=== PATIENT | male | born 1945 | race Hispanic/Latino ===

== ENCOUNTER 2017-09-24 06:18 | Inpatient (IN) | payer MEDICARE, OTHER ==
[2017-09-24 07:03] VITALS: BMI 36.3
[2017-09-24] MEDS ORDERED: Midazolam 2 MG/2 ML VIAL ONE (07:28)
[2017-09-24] MEDS ORDERED: Succinylcholine 200 mg/10 ml Inj IV ONE (07:28)
[2017-09-24] MEDS ORDERED: Etomidate 20 mg/10ml Inj IV ONE (07:28)
[2017-09-24] MEDS ORDERED: Rocuronium 10 mg/ml (5 ml) ONE (07:28)
[2017-09-24] MEDS ORDERED: ePHEDrine 50 mg/ml Inj ONE (07:29)
[2017-09-24] MEDS ORDERED: Phenylephrine 10 mg/ml Inj ONE (07:30)
[2017-09-24] MEDS ORDERED: Iohexol 240 (50 ml) ONE (07:39)
[2017-09-24] MEDS ORDERED: Bupivacaine 0.5% Inj(30mL) ONE (07:39)
--- NOTE | 2017-09-24 08:33 | CP.PCM.CON ---
History of Present Illness - History of Present Illness History of Present Illness: General Surgery note for Dr. Ramires Patient is a 72M with PMH of CAD, OR, CABG, aortic stenosis, and tricuspid regurgitation on aspirin at home with chronic cholecystitis and cholelithiasis who presented for an outpatient laparoscopic cholecystectomy. Pt had been given and high-risk assessment by his pole inspector, Dr. Ram prior to surgery with EKG on 09/03 with normal sinus rhythm. Pt was transferred to the OR and on the OR table after fentanyl administration was noted to have an irregular rhythm on the manager cardiac. EKG was performed and showed atrial fibrillation, which is new onset for this patient. Patient was otherwise hemodynamically stable and was transferred to the PACU. Dr. Barillas was contacted and will come evaluate the patient PMH: CAD, OR, aortic stenosis, and tricuspid regurgitation, HTN, HLD PSH: CABG, appendectomy ALL: NKDA Review of Systems - Constitutional Constitutional: absent: Chills, Fever - Cardiovascular Cardiovascular: Dyspnea on Exertion. absent: Chest Pain, Chest Pain at Rest, Edema - Respiratory Respiratory: Dyspnea on Exertion. absent: Cough, Dyspnea - Gastrointestinal Gastrointestinal: absent: Abdominal Pain, Nausea, Vomiting - Musculoskeletal Musculoskeletal: absent: Numbness, Tingling - Neurological Neurological: absent: Abnormal Gait, Numbness, Weakness Past Patient History - Past Medical History & Family History Past Medical History?: Yes Past Family History: Reviewed and not pertinent - Past Social History Smoking Status: Never Smoked - CARDIAC Hx Cardiac Disorders: Yes Hx Heart Attack: Yes Hx Hypercholesterolemia: Yes Hx Hypertension: Yes Hx Pacemaker: No Other/Comment: aortic stenosis, tricuspid regurgitation, CABG - NEUROLOGICAL Hx Paralysis: No - ENDOCRINE/METABOLIC Hx Endocrine Disorders: Yes Hx Diabetes Mellitus Type 2: Yes - HEMATOLOGICAL/ONCOLOGICAL Hx Blood Transfusions: No Hx Blood Transfusion Reaction: No - MUSCULOSKELETAL/RHEUMATOLOGICAL Hx Musculoskeletal Disorders: No - GASTROINTESTINAL Hx Gall Bladder Disease: Yes - PSYCHIATRIC Hx Emotional Abuse: No Hx Physical Abuse: No Hx Substance Use: No - SURGICAL HISTORY Hx Surgeries: Yes Hx Appendectomy: Yes Hx Coronary Artery Bypass Graft: Yes - ANESTHESIA Hx Anesthesia Reactions: No Hx Malignant Hyperthermia: No Meds Allergies/Adverse Reactions: Allergies Allergy/AdvReac Type Severity Reaction Status Date / Time No Known Allergies Allergy Verified 03/18/16 12:09 Physical Exam - Constitutional Appears: Well, Non-toxic, No Acute Distress - Head Exam Head Exam: ATRAUMATIC, NORMOCEPHALIC - Eye Exam Eye Exam: Normal appearance. absent: Conjunctival injection, Scleral icterus - ENT Exam ENT Exam: Mucous Membranes Moist, Normal Oropharynx - Respiratory Exam Respiratory Exam: NORMAL BREATHING PATTERN. absent: Accessory Muscle Use, Respiratory Distress - Cardiovascular Exam Cardiovascular Exam: Irregular Rhythm - GI/Abdominal Exam GI & Abdominal Exam: Soft. absent: Distended, Tenderness - Extremities Exam Extremities exam: Positive for: pedal pulses present. Negative for: calf tenderness, pedal edema - Neurological Exam Neurological exam: Alert, Oriented x3 - Psychiatric Exam Psychiatric exam: Normal Affect, Normal Mood - Skin Skin Exam: Dry, Intact, Warm Results - Vital Signs Recent Vital Signs: Last Vital Signs Temp 98.2 F 09/24/17 06:58 Pulse 56 L 09/24/17 06:58 Resp 18 09/24/17 06:58 BP 125/72 09/24/17 06:58 Pulse Ox 98 09/24/17 06:58 - Labs Labs: Laboratory Results - last 24 hr 09/24/17 09/24/17 06:47 07:40 POC Glucose (mg/dL) 119 H BBK History Checked No verified bt Assessment & Plan - Assessment and Plan (Free Text) Assessment: 72M with extensive cardiac history and cholelithiasis with new on set AFIB Plan: Postpone laparoscopic cholecystectomy pending cardiad evaluation/treatment of Afib Dr. Barillas/Yo consulted and will evaluate the patient Follow up cardiac recs heart healthy diet Seen and discussed with Dr. Keyla Moya, PGY2
[2017-09-24] MEDS: Heparin25000 units/250ml 1/2NS 25,000 UNITS/250 ML BAG IV PRN (11:29)
[2017-09-24] MEDS: Potassium Chloride 20 mEq ER Tab PO SCH (17:28)
[2017-09-24] MEDS: Insulin Human NPH 1 UNITS/0.01 ML SC SCH (17:29)
[2017-09-24] MEDS: Magnesium Oxide 400 mg Tab UD PO SCH (17:30)
[2017-09-24 17:37] LABS: BASO # 0.02 K/mm3 (0.0-2.0); BASO % 0.2 % (0.0-3.0); EOS # 0.1 (0.0-0.7); EOS % 1.5 % (1.5-5.0); GRAN # 5.45 (1.4-6.5); GRAN % 62.9 % (50.0-68.0); HEMOGLOBIN 12.1 g/dL (14.0-18.0); LYMPH # 2.5 (1.2-3.4); LYMPH % 29.1 % (22.0-35.0); MEAN CELL VOLUME 87.4 fl (80.0-105.0); MEAN CORPUSCULAR HEMOGLOBIN 28.9 pg (25.0-35.0); MEAN CORPUSCULAR HGB CONC 33.1 g/dl (31.0-37.0); MEAN PLATELET VOLUME 9.7 fl (7.0-11.0); MONO # 0.6 (0.1-0.6); MONO % 6.3 % (1.0-6.0); RBC 4.19 10^6/uL (3.5-6.1); RED CELL DISTRIBUTION WIDTH 14.8 % (11.5-14.5); WHITE BLOOD COUNT 8.7 10^3/ul (4.5-11.0)
[2017-09-24 17:45] LABS: ALB/GLOB RATIO 1.3 (1.1-1.8); ALBUMIN 4.4 g/dL (3.0-4.8); ALT/SGPT 28 U/L (7-56); AST/SGOT 27 U/L (17-59); BILIRUBIN,DIRECT 0.4 mg/dL (0.0-0.4); BLOOD UREA NITROGEN 36 mg/dL (7-21); CALCIUM 10.7 mg/dL (8.4-10.5); GFR AFRICAN-AMERICAN > 60; GFR NON-AFRICAN AMERICAN 59; HDL CHOLESTEROL 51 mg/dL (29-60); URIC ACID 8.5 mg/dL (3.5-8.5)
[2017-09-24 17:56] LABS: LDL CHOLESTEROL 59 mg/dL (0-129)
[2017-09-24] MEDS ORDERED: Magnesium Oxide 400 mg Tab UD PO SCH (18:00)
[2017-09-24 18:46] LABS: FREE T4 1.51 ng/dL (0.78-2.19); T4 7.4 ug/dL (5.5-11.0)
--- NOTE | 2017-09-24 18:46 | CARD ---
APPROVED REPORT EKG Measurement Heart [id number] <Conclusion> Atrial fibrillation with slow ventricular response Left axis deviation Right bundle branch block Inferior infarct, age undetermined Abnormal ECG
--- NOTE | 2017-09-24 21:23 | CON ---
DATE: 09/24/2017 INDICATION: Atrial fibrillation. HISTORY OF PRESENT ILLNESS: This is a 72-year-old man, well known to me, came to the hospital for an elective lap cholecystectomy by Dr. Ramires, was found to be in atrial fibrillation, which was new, rate was relatively slow, the procedure was canceled. He is now in the recovery area. He is in atrial fibrillation with the rate of about 80 beats per minute. He has no chest pain or shortness of breath. He does note continued intermittent abdominal pain attributable to his symptomatic gallstones. There is no orthopnea, PND, syncope, presyncope, lightheadedness or dizziness. No palpitations. He does have chronic edema. There is no fever, chills, cough, sputum production, hemoptysis. There is no nausea, vomiting, diarrhea, constipation or melena. PAST MEDICAL HISTORY: Complex. He has severe aortic stenosis and is considered high risk with surgery. He elected surgery in consultation with his sisters and other physicians because of his continuing symptomatic gallstones. In addition to aorticstenosis, he has mild mitral regurgitation, moderate tricuspid regurgitation, moderate pulmonary hypertension on the echo. He is diabetic. He has coronary artery disease, remote myocardial infarction, remote coronary artery bypass surgery. He has peripheral vascular disease, gout, BPH, hyperlipidemia, appendectomy. He is mentally challenged. There is no history of stroke, TIA. MEDICATIONS: Include allopurinol, aspirin, finasteride, furosemide, gemfibrozil, glimepiride, insulin, Lipitor, magnesium oxide, metformin, metoprolol, omeprazole, potassium chloride, vitamin B12, Zovirax. ALLERGIES: NO MEDICATION ALLERGIES. SOCIAL HISTORY: He lives at home. He does not smoke cigarettes. He does not drink alcohol. He is assisted by his sisters. FAMILY HISTORY: Noncontributory. REVIEW OF SYSTEMS: A 10-point review of systems was otherwise unremarkable except as noted above. PHYSICAL EXAMINATION: GENERAL: He is a well-developed male lying on stretcher in the recovery area, in no acute distress. VITAL SIGNS: He is in atrial fibrillation, 65-80 beats per minute, 117/76, respirations 18, O2 sat 96% to 98% on room air. HEENT: Reveals no neck vein distention, thyromegaly or carotid bruits. Mucous membranes are moist. Conjunctivae are pink. NECK: Supple. LUNGS: Lung harris clear with scattered rhonchi. HEART: Reveals distant heart sounds. Irregular rhythm. Systolic ejection murmur in the aortic space and along the left sternal border. PMI not palpable. ABDOMEN: Mildly tender in the right upper quadrant. Bowel sounds present. No mass, organomegaly, tenderness, rebound, guarding. No CVA tenderness. EXTREMITIES: No cyanosis, clubbing or edema. NEUROLOGIC: Awake, alert and oriented. PSYCHIATRIC: Normal as to mood and affect. SKIN: Warm and dry. No rash or cellulitis. IMPRESSION: Moody You is a 72-year-old man with severe aortic stenosis, coronary artery bypass surgery, left ventricular dysfunction, was admitted for elective laparoscopic cholecystectomy and found to have atrial fibrillation, the surgery has been canceled. PLAN: He will be admitted to telemetry. I will start him on heparin. I will review his old records. I will continue his usual medications. A decision will be made whether or not to proceed with surgery, which he is very eager to have. I have discussed all these issues again with the patient in the presence of his two sisters in the PACU. I have discussed his case with Dr. Ramires pre-operatively indicating the level of cardiac risk. I will follow along with you. I will make additional recommendations based on his clinical course. If he elects surgery, he should be considered a very high cardiac risk. yRan Ram MD [facility]
[2017-09-24 22:06] LABS: FOLATE > 20.0 ng/mL
--- NOTE | 2017-09-25 01:20 | HP ---
HISTORY OF PRESENT ILLNESS: Patient is a 72-year-old obese male who was admitted through the same-day surgery. Patient was scheduled for elective cholecystectomy today, but patient when arrived to the preoperative area. Patient's EKG showed atrial fibrillation, which was new onset and patient's surgery was canceled by the anesthesia and the surgeon. Patient was seen in the recovery room lying in the stretcher. Patient is comfortable without any complaints. REVIEW OF SYSTEMS: Patient's 13-system review was done, pertinent positive and negative dictated above. CODE STATUS: Patient's code status is full code. LIVING WILL ADVANCE DIRECTIVE: None. ALLERGIES: NONE. Height is 5 feet 4 inches. Weight is 193. BMI is 33. OCCUPATIONAL HISTORY: Not employed. FAMILY HISTORY: Positive for diabetes, hypertension. HOME MEDICATIONS: Aspirin 81 mg daily, allopurinol 300 mg daily, acyclovir 200 mg daily, which was not prescribed by ca, Amaryl or glimepiride 2 mg of twice a day, gemfibrozil 600 mg twice a day, Lasix 40 mg b.i.d. or t.i.d., Proscar 5 mg daily, vitamin B12 1000 mcg monthly, Lipitor 40 mg daily, K-Dur 20 mEq twice a day, Prilosec 40 mg p.r.n., Lopressor 50 mg twice a day, metformin 1000 mg twice a day, magnesium oxide 800 mg twice a day, NPH insulin 25 units breakfast and dinner. SOCIAL HISTORY: Negative for substance abuse. Negative for alcohol. Negative for smoking. PAST MEDICAL AND SURGICAL HISTORY: History of cholelithiasis, history of morbid obesity, history of dietary noncompliance, history of hyperuricemia, history of hypertension, history of myocardial infarction, history of coronary artery disease, coronary artery bypass graft, history of insulin-requiring diabetes mellitus, history of hypertriglyceridemia, history of congestive heart failure, history of severe aortic stenosis, history of moderate tricuspid regurgitation, history of ischemic cardiomyopathy with decreased ejection fraction, history of pulmonary arterial hypertension, history of vitamin B12 deficiency, history of prostatic hypertrophy, history of hyperlipidemia, history of hypokalemia, hypomagnesemia, history of bilateral renal cyst, history of diverticulosis of the colon, history of degenerative joint disease of the lumbar spine and thoracic spine, history of colonoscopy done in 2016 showing sigmoid colon tubulovillous adenoma, history of hyperplastic cecal polyp, history of concentric left ventricular hypertrophy, history of severely calcified aortic valve with severe aortic stenosis, history of moderate mitral annular calcification, history of pulmonary hypertension with right ventricular systolic pressure of 42 mmHg on the last echocardiogram in 09/2016, history of sigmoid colon polyp, history of internal hemorrhoids, history of right bundle-branch block, history of left axis deviation, history of age indeterminate inferior infarct. Patient's past medical history is also significant for history of diabetic ketoacidosis, history of left ventricular ejection fraction of 35%, history of multivessel coronary artery disease, history of cardiogenic shock, pulmonary edema. PHYSICAL EXAMINATION: GENERAL: Patient was seen in the recovery room. Patient is seen lying in the bed. VITAL SIGNS: T-max 98.2. Telemetry shows atrial fibrillation. Heart rate in 50s and 60s and 74. Blood pressure 135/63, 117/76, respiration 18, O2 sat 96%. HEENT: Head: Normocephalic, atraumatic. HEENT examination shows pinkish conjunctivae. Anicteric sclerae. No oropharyngeal lesion. NECK: No neck rigidity. CHEST: Kyphosis. Positive median sternotomy surgical scar. LUNGS: No rales, crackles or wheezing. CARDIOVASCULAR: S1, S2, irregular rhythm. Positive systolic murmur, left sternal border, right second intercostal space, left second intercostal space. ABDOMEN: Protuberant, obese. Positive bowel sounds. GENITALIA: Male. RECTAL: Deferred. EXTREMITIES: Shows no pitting edema, no calf tenderness, no Homans' sign. NEUROLOGIC: Patient is alert, awake, responsive. MUSCULOSKELETAL: Shows body mass index of 33. VASCULAR: Palpable pulses. Gait examination not tested. PSYCHIATRIC: Not applicable. DIAGNOSTICS: Troponin is 0.01. Random glucose is 119. The patient's preadmission testing was reviewed, which was from 09/03, which shows potassium of 3.4. Repeat preadmission testing is pending. Patient's EKG which was done today in the recovery room shows atrial fibrillation with slow ventricle response, left axis deviation, right bundle-branch block, which is new. Patient's diagnostic data pending. IMPRESSION: 1. New-onset atrial fibrillation with controlled ventricular response. 2. Right bundle-branch block. 3. Age indeterminate inferior infarct. 4. Left axis deviation. 5. History of coronary artery disease, coronary artery bypass graft, history of ischemic dilated cardiomyopathy. 6. Severe aortic stenosis and tricuspid regurgitation. 7. Cholelithiasis, cholecystitis. 8. Morbid obesity. 9. Normocytic anemia. 10. History of hypokalemia, hypomagnesemia. 11. Insulin-requiring diabetes mellitus. 12. Hypertriglyceridemia. 13. Hyperlipidemia. 14. Hyperuricemia. 15. History of congestive heart failure. PLAN: At this time, patient is to be admitted to telemetry. Cardiology consultation has already been requested with Dr. Barillas. Patient's change in the rhythm and new onset atrial fibrillation discussed by Dr. Ramires with Dr. Barillas. Patient has been ordered stat labs, CMP, LFTs, lipid panel, magnesium, troponin, hemoglobin A1c. CBC has been ordered. Patient's case is referred for visual educator, SIM escobar. Aspirin 81 mg daily, heparin drip as ordered by the Senior Advocate. Humalog low-dose sliding scale coverage ordered. NPH 25 units with breakfast and dinner ordered. K-Dur 20 mEq twice a day, Lasix 80 mg p.o. daily ordered by Cardiology. Lipitor 40 mg daily, Lopid 600 mg twice a day, Lopressor 50 mg twice a day, magnesium oxide 800 mg twice a day, Proscar 5 mg daily, allopurinol 300 mg daily ordered. Oxygen 2 liters ordered. Repeat EKG ordered. Echo with Doppler ordered. Heart-healthy diet ordered. Out of bed, JOSH stockings, SCDs, occupational therapy, physical therapy ordered. I have met with the patient's sister in the waiting area. I have explained to the patient's sister about the patient's change in the medical status and patient's family is already aware that patient is high risk for surgical intervention, but due to new-onset atrial fibrillation, patient's surgery has been canceled by the surgeon. All of the above was discussed and explained. Patient's condition, diagnosis , all details discussed with the patient and patient's two sisters in the waiting area at length. All questions and concerns answered. Patient's further management will be dependent upon the patient's clinical condition, hemodynamic status, as per the patient response to therapeutic intervention, as per the patient's diagnostic data and as per further recommendation by Cardiology. Dictated and electronically signed, not read. Brandyn MD [facility] # [id number]
[2017-09-25 09:55] LABS: BASO # 0.03 K/mm3 (0.0-2.0); BASO % 0.4 % (0.0-3.0); EOS # 0.1 (0.0-0.7); EOS % 1.6 % (1.5-5.0); GRAN # 5.79 (1.4-6.5); GRAN % 67.9 % (50.0-68.0); HEMOGLOBIN 12.3 g/dL (14.0-18.0); LYMPH # 1.9 (1.2-3.4); LYMPH % 21.7 % (22.0-35.0); MEAN CELL VOLUME 87.1 fl (80.0-105.0); MEAN CORPUSCULAR HEMOGLOBIN 28.9 pg (25.0-35.0); MEAN CORPUSCULAR HGB CONC 33.2 g/dl (31.0-37.0); MEAN PLATELET VOLUME 9.3 fl (7.0-11.0); MONO # 0.7 (0.1-0.6); MONO % 8.4 % (1.0-6.0); RBC 4.26 10^6/uL (3.5-6.1); RED CELL DISTRIBUTION WIDTH 14.6 % (11.5-14.5); WHITE BLOOD COUNT 8.5 10^3/ul (4.5-11.0)
[2017-09-25 10:14] LABS: TROPONIN I 0.02 ng/mL
[2017-09-25 10:33] LABS: BLOOD UREA NITROGEN 33 mg/dL (7-21); CALCIUM 10.6 mg/dL (8.4-10.5); GFR AFRICAN-AMERICAN > 60; GFR NON-AFRICAN AMERICAN > 60
[2017-09-25] MEDS: Heparin25000 units/250ml 1/2NS 25,000 UNITS/250 ML BAG IV PRN (10:41)
[2017-09-25] MEDS: Potassium Chloride 20 mEq ER Tab PO SCH ×2 (10:49→18:41)
[2017-09-25] MEDS: Magnesium Oxide 400 mg Tab UD PO SCH ×2 (10:49→18:41)
[2017-09-25] MEDS: Insulin Lispro (humaLOG) LOW Coverage SC SCH ×3 (10:50→21:32)
[2017-09-25] MEDS: Insulin Human NPH 1 UNITS/0.01 ML SC SCH ×2 (10:50→18:42)
--- NOTE | 2017-09-25 11:35 | PN ---
DATE: 09/25/2017 SUBJECTIVE: The patient is seen sitting in bed on telemetry. He remains in atrial fibrillation now with a controlled rate. He is comfortable. He denies any abdominal pain at present. He is unaware of any palpitations. CURRENT MEDICATIONS: Include IV heparin, aspirin, insulin, Lasix 80 mg daily, potassium 20 mEq b.i.d., Lipitor 40 mg daily, Lopid 600 mg b.i.d., metoprolol 50 mg b.i.d., Proscar 5 mg daily and Zyloprim. OBJECTIVE: GENERAL: He is an elderly man, who appears comfortable at the present time. VITAL SIGNS: His blood pressure is 116/70 with a pulse of 66 and atrial fibrillation, respirations are 14. He is afebrile. HEENT: No JVD. CHEST: A few scattered rhonchi heard. HEART: PMI displaced laterally with a late peaking systolic murmur present at the base radiating to the carotid. Rhythm is irregularly irregular. ABDOMEN: Soft and nontender. Normoactive bowel sounds. EXTREMITIES: No edema. DIAGNOSTIC DATA: Potassium 4.1, BUN and creatinine 33 and 1, glucose is 327. White count 8.5, hemoglobin and hematocrit 12.3 and 37.1 with a platelet count of 177,000. PTT is 58. IMPRESSION: 1. Recent onset of atrial fibrillation, currently with a controlled rate. 2. Coronary artery disease, status post prior bypass surgery. 3. Severe aortic stenosis. 4. Significant left ventricular dysfunction. 5. Cholelithiasis. 6. Mentally challenged. RECOMMENDATIONS: IV heparin will be continued for now. His rate control appears adequate at the present time. Risks remain significant given the presence of severe aortic stenosis, but apparently he and his family are willing to undergo surgery with this risk. The presence of atrial fibrillation does not change his risk profile significantly. IV heparin should continue for now. If he is to undergo surgery, heparin can be discontinued to the perioperative phase and resumed once felt safe. Long-term anticoagulation will likely be necessary as long as bleeding risk is not excessive. We will continue to follow and make further recommendations as appropriate. Ben Barillas MD [facility] # [id number]
--- NOTE | 2017-09-25 14:14 | CP.PCM.PN ---
Subjective - Date & Time of Evaluation Date of Evaluation: 09/25/17 Time of Evaluation: 09:55 - Subjective Subjective: Surgery Progress note. Dr. Ramires Pt seen and examined at bedside. Sitting up in chair. Denies any complaints. Tolerating diet, no N/V/D. Denies any chest pain or SOB. No New complaints. Objective - Vital Signs/Intake and Output Vital Signs (last 24 hours): Temp Pulse Resp BP Pulse Ox 97.5 F L 91 H 17 141/86 97 09/25/17 12:00 09/25/17 12:00 09/25/17 12:00 09/25/17 12:00 09/25/17 05:17 Intake and Output: 09/25/17 09/25/17 06:59 18:59 Intake Total 605 65 Output Total 650 Balance -45 65 - Medications Medications: Current Medications Allopurinol (Zyloprim) 300 mg PO DAILY [facility] Last Admin: 09/25/17 10:49 Dose: 300 mg Aspirin (Ecotrin) 81 mg PO DAILY [facility] Last Admin: 09/25/17 10:49 Dose: 81 mg Atorvastatin Calcium (Lipitor) 40 mg PO DIN [facility] Last Admin: 09/24/17 17:29 Dose: 40 mg Docusate Sodium (Colace) 100 mg PO TID [facility] Finasteride (Proscar) 5 mg PO HS [facility] Last Admin: 09/24/17 22:04 Dose: 5 mg Furosemide (Lasix) 80 mg PO DAILY [facility] Last Admin: 09/25/17 10:49 Dose: 80 mg Gemfibrozil (Lopid) 600 mg PO BID [facility] Last Admin: 09/25/17 10:49 Dose: 600 mg Heparin Sodium/Sodium Chloride (Heparin 84012 Units/250ml 1/2 Normal Saline) 25 ,000 units in 250 mls @ 15.758 mls/hr IV .[id number] PRN; Protocol; 18 UNITS/KG/HR PRN Reason: ADJUST RATE PER PROTOCOL Last Admin: 09/25/17 10:41 Dose: 12 units/kg/hr, 10.505 mls/hr Insulin Human Lispro (Humalog Low) 0 units SC AC [facility] PRN Reason: Protocol Last Admin: 09/25/17 10:50 Dose: 4 units Insulin Human NPH (Humulin N) 25 units SC [facility] Last Admin: 09/25/17 10:50 Dose: 25 units Magnesium Oxide (Mag-Ox) 800 mg PO BID [facility] Last Admin: 09/25/17 10:49 Dose: 800 mg Metoprolol Tartrate (Lopressor) 50 mg PO BID [facility] Last Admin: 09/25/17 10:50 Dose: 50 mg Polyethylene Glycol (Miralax) 17 gm PO BID [facility] Potassium Chloride (K-Dur 20 Meq Er Tab) 20 meq PO BID [facility] Last Admin: 09/25/17 10:49 Dose: 20 meq - Labs Labs: 09/25/17 09:45 09/25/17 09:45 APTT 57.8 Seconds (25.1-36.5) H 09/25/17 09:45 - Constitutional Appears: Well, Non-toxic, No Acute Distress - Head Exam Head Exam: ATRAUMATIC, NORMAL INSPECTION, NORMOCEPHALIC - Eye Exam Eye Exam: EOMI. absent: Scleral icterus - ENT Exam ENT Exam: Mucous Membranes Moist - Cardiovascular Exam Cardiovascular Exam: absent: JVD - GI/Abdominal Exam GI & Abdominal Exam: Soft. absent: Distended, Firm, Guarding, Rigid, Tenderness - Extremities Exam Extremities Exam: Normal Inspection. absent: Calf Tenderness - Neurological Exam Neurological Exam: Alert, Awake, Oriented x3 - Skin Skin Exam: Dry, Intact, Normal Color, Warm Assessment and Plan - Assessment and Plan (Free Text) Assessment: 72yo M with extensive cardiac history and cholelithiasis. Surgery postponed due to new-onset A.Fib. Plan: - Continue Heparin ggt for AC for now - Will plan for OR Saturday AM. - f/u Cardiac recs - Heart Healthy Diet Further recs as per Dr. Keyla Harmon PGY1 surgery pager: [phone]
[2017-09-25] MEDS: POLYETHYLENE GLYCOL 3350 17 GM/Dose PACKET PO SCH ×2 (14:35→18:43)
--- NOTE | 2017-09-25 18:03 | CARD ---
APPROVED REPORT EXAM: Two-dimensional and M-mode echocardiogram with Doppler and color Doppler. INDICATION CAD/CABG 2D DIMENSIONS Left Atrium (2D)4.9 (1.6-4.0cm)IVSd1.2 (0.7-1.1cm) LVDd5.0 (3.9-5.9cm)LVOT Diameter1.8 (1.8-2.4cm) PWd1.1 (0.7-1.1cm) M-Mode DIMENSIONS Aortic Root3.30 (2.2-3.7cm)Aortic Cusp Exc.0.50 (1.5-2.0cm) Aortic Valve AoV Peak Mnxmokwi221.0cm/sAoV VTI87.4cmAO Peak GR.60mmHg LVOT Peak Ejoatuvr57.7cm/sLVOT VTI15.00cmAO Mean GR.35mmHg CHENG (VMAX)0.05ex5VTO (VTI)0.44cm2 Mitral Valve MV E Rjgxojqj751.0cm/sMV A Qevcfwcn48.0cm/sMV ANJ84jj E/A ratio2.9MVA (PHT)2.65cm2 TDI Lateral E' Peak V7.60cm/sE/Lateral E'15.4E/Medial E'0.0 Pulmonary Valve PV Peak Txysvuto63.2cm/sPV Peak Grad.1mmHg Tricuspid Valve TR Peak Iuzhlaax683or/sRAP SHJVNIHI05vgCzUX Peak Gr.65mmHg [id number] LEFT VENTRICLE The left ventricle is normal size. There is normal left ventricular wall thickness. Left ventricle systolic function is severely impaired. The Ejection Fraction is 20-25%. There is global hypokinesis of the left ventricle. Transmitral Doppler flow pattern is Grade II-pseudonormal filling dynamics. RIGHT VENTRICLE The right ventricle is moderately dilated. There is normal right ventricular wall thickness. RV Systolic function is severely reduced. ATRIA The left atrium is mildly dilated. The right atrium is mildly dilated. AORTIC VALVE The aortic valve is severely calcified. No aortic regurgitation is present. There is moderate to severe valvular aortic stenosis. MITRAL VALVE The mitral valve is moderately thickened. Mitral regurgitation is mild. TRICUSPID VALVE There is severe tricuspid regurgitation. There is severe pulmonary hypertension. GREAT VESSELS The aortic root is normal in size. The IVC collapses <50% with inspiration. PERICARDIAL EFFUSION There is no pericardial effusion. <Conclusion> The left ventricle is normal size. There is normal left ventricular wall thickness. Left ventricle systolic function is severely impaired. The Ejection Fraction is 20-25%. There is global hypokinesis of the left ventricle. The right ventricle is moderately dilated.RV Systolic function is severely reduced. The aortic valve is severely calcified.There is moderate to severe valvular aortic stenosis. Mitral regurgitation is mild. There is severe tricuspid regurgitation.There is severe pulmonary hypertension.
--- NOTE | 2017-09-25 19:18 | CARD ---
APPROVED REPORT EKG Measurement Heart [id number] <Conclusion> Atrial fibrillation with premature ventricular or aberrantly conducted complexes Left axis deviation Right bundle branch block Inferior infarct, age undetermined Abnormal ECG
[2017-09-25] MEDS ORDERED: Magnesium Hydroxide Susp 30 ml UD PO ONE (22:03)
--- NOTE | 2017-09-26 03:26 | PN ---
DATE: 09/25/2017 SUBJECTIVE: Patient is seen in room 273, bed 1. Patient is out of bed to chair. Patient is complaining of constipation. Patient denies any chest pain, denies shortness of breath, denies nausea, denies vomiting, denies hemoptysis, denies melena, denies bleeding. Overnight nurse's notes were reviewed. PHYSICAL EXAMINATION: VITAL SIGNS: T-max 97.2 to 98.4. Telemetry shows atrial fibrillation. Heart rate in 60s, 70s and 80s. Blood pressure is averaging around 115/62, 116/67, 141/86; respiration 17, O2 sat is 95% to 97%. Intake and output is not documented. HEENT: Head examination, normocephalic, atraumatic. HEENT examination shows pink conjunctivae. Anicteric sclerae. No oropharyngeal lesion. No neck rigidity. CHEST: Showed median sternotomy surgical scar. LUNGS: Shows no rales, crackles or wheezing. Questionable decreased breath sound at the left base. CARDIOVASCULAR: Shows S1, S2, regular rhythm. Positive systolic murmur left sternal border, right second intercostal space, left second intercostal space. ABDOMEN: Protuberant, obese. Positive bowel sound. GENITALIA: Male. RECTAL: Examination is deferred. EXTREMITIES: Shows no pitting edema of the lower extremity. MUSCULOSKELETAL: Shows a body mass index of 33. NEUROLOGIC: Patient is alert, awake, responsive. Cranial nerves II through XII intact. Gait examination is independent. VASCULAR: Palpable pulses. DIAGNOSTICS: On 09/25, WBC 8.5, hemoglobin/hematocrit 12.3 and 37.1, platelet 177. PTT is 99.2 down to 58 down to 68. Sodium 136, potassium 4.1, chloride 95, CO2 27, anion gap 18, BUN 33, creatinine 1, GFR greater than 60. Random glucose 327, hemoglobin A1c 7.3, calcium 10.6. Troponin is negative. TSH is normal. T4 is within normal limit. Blood type A negative. EKG and echocardiogram results reviewed. IMPRESSION AND PLAN: 1. New-onset atrial fibrillation with left axis deviation and right bundle-branch block. 2. Age indeterminate inferior infarct. 3. Dilated ischemic cardiomyopathy with severely impaired left ventricular ejection fraction of 20% to 25% with global left ventricular hypokinesis. 3. Grade 2 pseudonormal filling dynamics. 4. Severe pulmonary hypertension with elevated right ventricular systolic pressure of 75 mmHg. 5. Moderately dilated right ventricle and severely reduced right ventricular systolic function. 6. Severely calcified aortic valve with [id number] valvular aortic stenosis. 7. Moderately thickened mitral valve. 8. Severe tricuspid regurgitation. 9. Global left ventricular hypokinesis. 10. Mild normocytic anemia. 11. Prerenal kidney injury. 12. Uncontrolled insulin-requiring diabetes mellitus with hyperglycemia and hemoglobin A1c of 7.3. 13. Mild hypercalcemia. 14. Hypertriglyceridemia. 15. Morbid obesity with elevated body mass index. 16. Cholelithiasis. 17. History of severe dietary noncompliance. 18. Constipation. 19. Hypokalemia. 20. Hyperlipidemia, hypomagnesemia. 21. Prostatic hypertrophy. Plan at this time, patient's family and patient himself is very persistent on proceeding with the surgery. Patient has been told and the family has been extensively told that the patient is extremely high risk for surgical intervention secondary to severe aortic stenosis and cardiomyopathy, but the patient and the patient's family are willing to proceed with the surgery with a high risk status. At present, patient is to be continued on telemetry with serial labs. CURRENT CONSULTATION: 1. Cardiology. 2. Surgery. 3. Referral to inclusion special educator, SIM escobar. CURRENT MEDICATIONS: 1. Colace 100 mg three times a day. 2. Aspirin 81 mg daily. 3. Heparin drip titration protocol. 4. Humalog low-dose sliding scale coverage a.c. and bedtime. 5. NPH 25 units with breakfast and dinner. 6. K-Dur 20 mEq twice a day. 7. Lasix 80 mg p.o. daily. 8. Lipitor 40 mg daily. 9. Lopid 600 mg twice a day. 10. Lopressor 50 mg twice a day. 11. Magnesium oxide 800 mg twice a day. 12. MiraLax 17 g twice a day. 13. Proscar 5 mg daily. 14. Allopurinol 300 mg daily. 15. Oxygen 2 liters continuous. The patient is scheduled for surgery by Dr. Ramires for cholecystectomy on 09/27. Patient has SCDs, JOSH stockings. Patient and the patient's family understand the risk and consequences of surgical intervention. Patient is still at high risk for surgical intervention, but the patient and the patient's family wishes to proceed with the surgery with cholecystectomy with associated high risk. Patient and the family understands the risk and consequences. Dictated and electronically signed, not read. Brandyn Erickson MD
--- NOTE | 2017-09-26 04:12 | CP.PCM.PN ---
Subjective - Date & Time of Evaluation Date of Evaluation: 09/26/17 Time of Evaluation: 04:09 - Subjective Subjective: Nurse paged about one 2.67 second pause and bradycardia (low 30's) on the monitor. Patient is asymptomatic. Objective - Vital Signs/Intake and Output Vital Signs (last 24 hours): Temp Pulse Resp BP Pulse Ox 98.2 F 52 L 18 101/56 L 97 09/25/17 23:30 09/26/17 01:45 09/25/17 23:30 09/25/17 23:30 09/25/17 23:30 Intake and Output: 09/25/17 09/26/17 18:59 06:59 Intake Total 65 Balance 65 - Medications Medications: Current Medications Allopurinol (Zyloprim) 300 mg PO DAILY [facility] Last Admin: 09/25/17 10:49 Dose: 300 mg Aspirin (Ecotrin) 81 mg PO DAILY [facility] Last Admin: 09/25/17 10:49 Dose: 81 mg Atorvastatin Calcium (Lipitor) 40 mg PO DIN [facility] Last Admin: 09/25/17 18:41 Dose: 40 mg Docusate Sodium (Colace) 100 mg PO TID [facility] Last Admin: 09/25/17 18:42 Dose: 100 mg Finasteride (Proscar) 5 mg PO HS [facility] Last Admin: 09/25/17 21:40 Dose: 5 mg Furosemide (Lasix) 80 mg PO DAILY [facility] Last Admin: 09/25/17 10:49 Dose: 80 mg Gemfibrozil (Lopid) 600 mg PO BID [facility] Last Admin: 09/25/17 18:41 Dose: 600 mg Heparin Sodium/Sodium Chloride (Heparin 92935 Units/250ml 1/2 Normal Saline) 25 ,000 units in 250 mls @ 15.758 mls/hr IV .[id number] PRN; Protocol; 18 UNITS/KG/HR PRN Reason: ADJUST RATE PER PROTOCOL Last Admin: 09/25/17 10:41 Dose: 12 units/kg/hr, 10.505 mls/hr Insulin Human Lispro (Humalog Low) 0 units SC AC [facility] PRN Reason: Protocol Last Admin: 09/25/17 21:32 Dose: Not Given Insulin Human N[facility] (Humulin N) [facility] Last Admin: 09/25/17 18:42 Dose: 25 units Magnesium Oxide (Mag-Ox) 800 mg PO BID [facility] Last Admin: 09/25/17 18:41 Dose: 800 mg Metoprolol Tartrate (Lopressor) 50 mg PO BID [facility] Last Admin: 09/25/17 18:42 Dose: 50 mg Polyethylene Glycol (Miralax) 17 gm PO BID [facility] Last Admin: 09/25/17 18:43 Dose: 17 gm Potassium Chloride (K-Dur 20 Meq Er Tab) 20 meq PO BID [facility] Last Admin: 09/25/17 18:41 Dose: 20 meq - Labs Labs: 09/25/17 09:45 09/25/17 09:45 APTT 68.0 Seconds (25.1-36.5) H 09/25/17 16:50
[2017-09-26 06:56] LABS: INR 1.2 (0.93-1.08); PARTIAL THROMBOPLASTIN TIME 77.5 Seconds (25.1-36.5); PROTHROMBIN TIME 13.8 SECONDS (9.4-12.5)
[2017-09-26 07:50] LABS: ALB/GLOB RATIO 1.3 (1.1-1.8); ALBUMIN 4.2 g/dL (3.0-4.8); ALT/SGPT 27 U/L (7-56); AST/SGOT 34 U/L (17-59); BILIRUBIN,DIRECT 0.4 mg/dL (0.0-0.4); BLOOD UREA NITROGEN 34 mg/dL (7-21); CALCIUM 10.5 mg/dL (8.4-10.5); GFR AFRICAN-AMERICAN > 60; GFR NON-AFRICAN AMERICAN > 60
[2017-09-26] MEDS: Insulin Lispro (humaLOG) LOW Coverage SC SCH ×3 (08:09→17:55)
--- NOTE | 2017-09-26 08:14 | CP.PCM.PN ---
Subjective - Date & Time of Evaluation Date of Evaluation: 09/26/17 Time of Evaluation: 07:00 - Subjective Subjective: Stable on 2R. No CP or SOB. No abd. pain. V/S noted. AF. PE: Lungs: clear Cor: irreg S1s2 Abd.: soft Ext.: no edema Neuro.: alert I/O= 185/300 recorded Labs noted: K+= 4.2, Cr.= 1.1, PTT = 77 Echo repeated: See report. Lakshmi. LVD, Severe , Severe TR and PH Objective - Vital Signs/Intake and Output Vital Signs (last 24 hours): Temp Pulse Resp BP Pulse Ox 97.8 F 71 20 126/66 98 09/26/17 06:00 09/26/17 06:00 09/26/17 06:00 09/26/17 06:00 09/26/17 06:00 Intake and Output: 09/26/17 09/26/17 06:59 18:59 Intake Total 120 Output Total 300 Balance -180 - Medications Medications: Current Medications Allopurinol (Zyloprim) 300 mg PO DAILY [facility] Last Admin: 09/25/17 10:49 Dose: 300 mg Aspirin (Ecotrin) 81 mg PO DAILY [facility] Last Admin: 09/25/17 10:49 Dose: 81 mg Atorvastatin Calcium (Lipitor) 40 mg PO DIN [facility] Last Admin: 09/25/17 18:41 Dose: 40 mg Atropine Sulfate (Atropine) 0.5 mg IVP Q5MIN PRN PRN Reason: Symptomatic Bradycardia Stop: 09/26/17 08:30 Docusate Sodium (Colace) 100 mg PO TID [facility] Last Admin: 09/25/17 18:42 Dose: 100 mg Finasteride (Proscar) 5 mg PO HS [facility] Last Admin: 09/25/17 21:40 Dose: 5 mg Furosemide (Lasix) 80 mg PO DAILY [facility] Last Admin: 09/25/17 10:49 Dose: 80 mg Gemfibrozil (Lopid) 600 mg PO BID [facility] Last Admin: 09/25/17 18:41 Dose: 600 mg Heparin Sodium/Sodium Chloride (Heparin 32569 Units/250ml 1/2 Normal Saline) 25 ,000 units in 250 mls @ 15.758 mls/hr IV .[id number] PRN; Protocol; 18 UNITS/KG/HR PRN Reason: ADJUST RATE PER PROTOCOL Last Admin: 09/25/17 10:41 Dose: 12 units/kg/hr, 10.505 mls/hr Insulin Human Lispro (Humalog Low) 0 units SC AC [facility] PRN Reason: Protocol Last Admin: 09/25/17 21:32 Dose: Not Given Insulin Human [facility] ([facility]ulin N) [facility] Last Admin: 09/25/17 18:42 Dose: 25 units Magnesium Oxide (Mag-Ox) 800 mg PO BID [facility] Last Admin: 09/25/17 18:41 Dose: 800 mg Metoprolol Tartrate (Lopressor) 25 mg PO BID [facility] Polyethylene Glycol (Miralax) 17 gm PO BID [facility] Last Admin: 09/25/17 18:43 Dose: 17 gm Potassium Chloride (K-Dur 20 Meq Er Tab) 20 meq PO BID [facility] Last Admin: 09/25/17 18:41 Dose: 20 meq - Labs Labs: 09/25/17 09:45 09/26/17 05:30 PT 13.8 SECONDS (9.4-12.5) H 09/26/17 05:30 INR 1.20 (0.93-1.08) H 09/26/17 05:30 APTT 77.5 Seconds (25.1-36.5) H 09/26/17 05:30 Assessment and Plan - Assessment and Plan (Free Text) Assessment: Admitted for elective high risk lap. karlos, found to be in AF, new CAD/ME/CABG/Sev. LVD Valvular Heart Disease: Sev , TR and PH PVD Gout BPH Gall Stones with frequent symptoms. Mentaly Challenged Plan: As per Surgery>lap. karlos planned for tomorrow Heparin by PTTs Avoid hypotension and volume shifts intraoperatively. High Cardiac Risk. Fully discussed with the patient and his sisters by me. Monitor: labs, I/O, sats, tel. Probably ICU bed post op.
--- NOTE | 2017-09-26 08:43 | CP.PCM.PN ---
Subjective - Date & Time of Evaluation Date of Evaluation: 09/26/17 Time of Evaluation: 07:45 - Subjective Subjective: Surgery Progress note. Dr. Ramires Pt seen and examined at bedside. No new complaints. Tolerating diet. No N/V/D. No Abdominal pain. No fevers or chills. Had a BM today. Objective - Vital Signs/Intake and Output Vital Signs (last 24 hours): Temp Pulse Resp BP Pulse Ox 97.8 F 71 20 126/66 98 09/26/17 06:00 09/26/17 06:00 09/26/17 06:00 09/26/17 06:00 09/26/17 06:00 Intake and Output: 09/26/17 09/26/17 06:59 18:59 Intake Total 120 Output Total 300 Balance -180 - Medications Medications: Current Medications Allopurinol (Zyloprim) 300 mg PO DAILY [facility] Last Admin: 09/25/17 10:49 Dose: 300 mg Aspirin (Ecotrin) 81 mg PO DAILY [facility] Last Admin: 09/25/17 10:49 Dose: 81 mg Atorvastatin Calcium (Lipitor) 40 mg PO DIN [facility] Last Admin: 09/25/17 18:41 Dose: 40 mg Docusate Sodium (Colace) 100 mg PO TID [facility] Last Admin: 09/25/17 18:42 Dose: 100 mg Finasteride (Proscar) 5 mg PO HS [facility] Last Admin: 09/25/17 21:40 Dose: 5 mg Furosemide (Lasix) 80 mg PO DAILY [facility] Last Admin: 09/25/17 10:49 Dose: 80 mg Gemfibrozil (Lopid) 600 mg PO BID [facility] Last Admin: 09/25/17 18:41 Dose: 600 mg Heparin Sodium/Sodium Chloride (Heparin 34163 Units/250ml 1/2 Normal Saline) 25 ,000 units in 250 mls @ 15.758 mls/hr IV .[id number] PRN; Protocol; 18 UNITS/KG/HR PRN Reason: ADJUST RATE PER PROTOCOL Last Admin: 09/25/17 10:41 Dose: 12 units/kg/hr, 10.505 mls/hr Insulin Human Lispro (Humalog Low) 0 units SC [facility] PRN Reason: Protocol Last Admin: 09/26/17 08:09 Dose: Not Given Insulin Human NPH (Humulin N) 25 units SC ACBD [facility] Last Admin: 09/25/17 18:42 Dose: 25 units Magnesium Oxide (Mag-Ox) 800 mg PO BID [facility] Last Admin: 09/25/17 18:41 Dose: 800 mg Metoprolol Tartrate (Lopressor) 25 mg PO BID [facility] Polyethylene Glycol (Miralax) 17 gm PO BID [facility] Last Admin: 09/25/17 18:43 Dose: 17 gm Potassium Chloride (K-Dur 20 Meq Er Tab) 20 meq PO BID [facility] Last Admin: 09/25/17 18:41 Dose: 20 meq - Labs Labs: 09/25/17 09:45 09/26/17 05:30 PT 13.8 SECONDS (9.4-12.5) H 09/26/17 05:30 INR 1.20 (0.93-1.08) H 09/26/17 05:30 APTT 77.5 Seconds (25.1-36.5) H 09/26/17 05:30 - Constitutional Appears: Well, Non-toxic, No Acute Distress - Head Exam Head Exam: ATRAUMATIC, NORMAL INSPECTION, NORMOCEPHALIC - Eye Exam Eye Exam: EOMI, Normal appearance - ENT Exam ENT Exam: Mucous Membranes Moist - Respiratory Exam Respiratory Exam: NORMAL BREATHING PATTERN. absent: Accessory Muscle Use, Respiratory Distress - Cardiovascular Exam Cardiovascular Exam: RRR. absent: JVD - GI/Abdominal Exam GI & Abdominal Exam: Soft. absent: Distended, Firm, Guarding, Tenderness, Rebound - Extremities Exam Extremities Exam: Normal Inspection. absent: Calf Tenderness - Neurological Exam Neurological Exam: Alert, Awake, Oriented x3 - Skin Skin Exam: Dry, Intact, Normal Color, Warm Assessment and Plan - Assessment and Plan (Free Text) Assessment: 72yo M with extensive cardiac history and cholelithiasis. Surgery postponed due to new-onset A. Fib. Plan: - To OR 09/27/17 - Continue Heparin ggt for AC - f/u Cardiac recs - NPO past mn Further recs as per Dr. Keyla Harmon PGY1 surgery pager: [phone]
[2017-09-26] MEDS: Heparin25000 units/250ml 1/2NS 25,000 UNITS/250 ML BAG IV PRN (09:05)
[2017-09-26] MEDS: Insulin Human NPH 1 UNITS/0.01 ML SC SCH ×2 (09:06→17:54)
[2017-09-26] MEDS: POLYETHYLENE GLYCOL 3350 17 GM/Dose PACKET PO SCH ×2 (09:06→17:55)
[2017-09-26] MEDS: Potassium Chloride 20 mEq ER Tab PO SCH ×2 (09:08→17:56)
[2017-09-26] MEDS: Magnesium Oxide 400 mg Tab UD PO SCH ×2 (09:09→17:56)
--- NOTE | 2017-09-26 10:55 | PN ---
DATE: 09/26/2017 LOCATION: The patient is in room 273, bed 1. SUBJECTIVE: The patient is in no distress. Overnight nurse's notes were reviewed. The patient had a pause earlier this morning of more than 2 seconds. residential appraiser was notified. The patient apparently was noted by the nurse to be asymptomatic. No intervention was provided by the healthcare or medical. PHYSICAL EXAMINATION: VITAL SIGNS: Telemetry at present shows atrial fibrillation, heart rate in 60s and 50s and 70s beat per minute. T-max 98.7-98.4. Blood pressure 134/80, 140/87; respirations 18-20; O2 sat in mid to high 90%. HEENT: Head examination normocephalic, atraumatic. HEENT examination shows pink conjunctivae. Anicteric sclerae. No oropharyngeal lesion. No neck rigidity. CHEST: Kyphosis. LUNGS: Shows decreased breath sounds at the bases, left more than the right. No rales, crackles or wheezing. CARDIOVASCULAR: S1, S2, irregular rhythm. Positive systolic murmur, left sternal border, right second intercostal space, left second intercostal space. ABDOMEN: Obese, protuberant. Positive bowel sound. No hepatosplenomegaly noted. No guarding. No rigidity. No rebound tenderness. GENITALIA: Male. RECTAL: Deferred. EXTREMITY: Shows no pitting edema, no calf tenderness. No Aicha's signs. MUSCULOSKELETAL: Shows an elevated body mass index for age and weight. NEUROLOGIC: The patient is alert, awake, responsive. Cranial nerves II through XII grossly intact. Gait examination is independent. PSYCHIATRIC: Not applicable. DIAGNOSTICS: CMP, LFTs were reviewed. Potassium is greater than 4. Magnesium is 2.5. LFTs are normal. BUN, creatinine are within normal limits. As mentioned, the patient had no EKG done or ordered by the healthcare or medical when the patient had a pause, though the patient was asymptomatic as per the nurse's note. IMPRESSION AND PLAN: 1. New-onset atrial fibrillation with slow ventricular response and greater than 2-second pause. 2. Cholelithiasis. 3. Cholecystitis. 4. Morbid obesity with elevated body mass index. 5. Severe dietary noncompliance. 6. Right bundle-branch block. 7. Hypertension. 8. Ischemic dilated cardiomyopathy. 9. Pulmonary hypertension. 10. Moderate pulmonary hypertension and moderate tricuspid regurgitation. 11. Moderate to severe aortic stenosis. 12. Ischemic dilated cardiomyopathy with decreased left ventricular ejection fraction. 13. Insulin-requiring diabetes mellitus. 14. Hyperlipidemia. 15. Hypertriglyceridemia. 16. Hyperuricemia. 17. Vitamin B12 deficiency. 18. Prostatic hypertrophy. 19. History of coronary artery disease, coronary artery bypass graft, history of cardiogenic shock. Plan at this time, the patient's metoprolol dose has been decreased to 25 mg twice a day with holding parameters. The patient is presently on heparin drip. The patient is on GI prophylaxis with proton pump inhibitor. The patient will be continued on insulin post basal and bolus dose insulin. The patient is on Lipitor and statins. The patient's medications were reviewed as of 09/26/2017. The patient will be continued on the above therapeutic intervention. The patient and the patient's family still wishes to proceed with cholecystectomy, though the patient and the patient's family was advised that the patient is high risk for surgical intervention for cholecystectomy, but the patient and the patient's family still wishes to proceed with the surgical option with associated high risk. The family and the patient understands the high risk for the patient and still wishes to proceed with the surgery. The patient will be followed closely by Cardiology, Surgery and Medicine. The patient will be continued on telemetry. The patient will be ordered a repeat EKG and further cardiology evaluation. Dictated and electronically signed, not read. Brandyn Erickson MD
[2017-09-26 11:02] LABS: TROPONIN I 0.02 ng/mL
[2017-09-26 20:19] LABS: URINE BILIRUBIN NEGATIVE (NEGATIVE); URINE BLOOD NEGATIVE (NEGATIVE); URINE GLUCOSE (UA) NEGATIVE (NEGATIVE); URINE LEUKOCYTE ESTERASE NEGATIVE Leu/uL (NEGATIVE); URINE PROTEIN NEGATIVE mg/dL (<30 mg/dL); URINE UROBILINOGEN 0.2 E.U./dL (<1 E.U./dL)
[2017-09-26 20:20] LABS: URINE APPEARANCE CLEAR (CLEAR); URINE COLOR LIGHT YELLOW (YELLOW)
--- NOTE | 2017-09-26 22:25 | CARD ---
APPROVED REPORT EKG Measurement Heart [id number] <Conclusion> Atrial fibrillation with a competing junctional pacemaker with premature ventricular or aberrantly conducted complexes Left axis deviation Right bundle branch block Abnormal ECG
[2017-09-27 04:19] LABS: HEMOGLOBIN 11.2 g/dL (14.0-18.0); MEAN CELL VOLUME 87.6 fl (80.0-105.0); MEAN CORPUSCULAR HEMOGLOBIN 28.9 pg (25.0-35.0); MEAN CORPUSCULAR HGB CONC 32.9 g/dl (31.0-37.0); MEAN PLATELET VOLUME 8.9 fl (7.0-11.0); RBC 3.88 10^6/uL (3.5-6.1); RED CELL DISTRIBUTION WIDTH 14.8 % (11.5-14.5); WHITE BLOOD COUNT 8.3 10^3/ul (4.5-11.0)
[2017-09-27 04:35] LABS: INR 1.23 (0.93-1.08); PARTIAL THROMBOPLASTIN TIME 46.7 Seconds (25.1-36.5); PROTHROMBIN TIME 14.1 SECONDS (9.4-12.5)
[2017-09-27 04:58] LABS: ALB/GLOB RATIO 1.2 (1.1-1.8); ALBUMIN 3.9 g/dL (3.0-4.8); ALT/SGPT 32 U/L (7-56); AST/SGOT 32 U/L (17-59); BILIRUBIN,DIRECT 0.3 mg/dL (0.0-0.4); BLOOD UREA NITROGEN 25 mg/dL (7-21); CALCIUM 9.9 mg/dL (8.4-10.5); GFR AFRICAN-AMERICAN > 60; GFR NON-AFRICAN AMERICAN > 60
--- NOTE | 2017-09-27 07:06 | RAD ---
HISTORY: pre-op COMPARISON: 07/16/2017 FINDINGS: LUNGS: No active pulmonary disease. PLEURA: No significant pleural effusion identified, no pneumothorax apparent. CARDIOVASCULAR: No radiographic findings to suggest acute or significant cardiovascular disease. Incidental Finding(s): Postoperative changes related to sternotomy. OSSEOUS STRUCTURES: No significant abnormalities. VISUALIZED UPPER ABDOMEN: Normal. OTHER FINDINGS: None. IMPRESSION: No active disease. No significant interval change compared to the prior examination(s).
--- NOTE | 2017-09-27 07:40 | CP.PCM.PN ---
Subjective - Date & Time of Evaluation Date of Evaluation: 09/27/17 Time of Evaluation: 07:00 - Subjective Subjective: Stable on 2R. No CP or SOB. No abd. pain. V/S noted. AF. PE: Lungs: clear Cor: irreg S1s2 Abd.: soft Ext.: no edema Neuro.: alert I/O= 430/250 recorded Labs noted. CXR 09/26: NAD ECG 09/25: AF, RBBB, LAD. No change Echo repeated: See report. Severe LVD, Severe , Severe TR and PH Objective - Vital Signs/Intake and Output Vital Signs (last 24 hours): Temp Pulse Resp BP Pulse Ox 98.3 F 74 20 120/86 96 09/27/17 06:00 09/27/17 06:00 09/27/17 06:00 09/27/17 06:00 09/27/17 06:00 Intake and Output: 09/27/17 09/27/17 06:59 18:59 Intake Total 180 Output Total 250 Balance -70 - Medications Medications: Current Medications Allopurinol (Zyloprim) 300 mg PO DAILY [facility] Last Admin: 09/26/17 09:09 Dose: 300 mg Aspirin (Ecotrin) 81 mg PO DAILY [facility] Last Admin: 09/25/17 10:49 Dose: 81 mg Atorvastatin Calcium (Lipitor) 40 mg PO DIN [facility] Last Admin: 09/26/17 17:56 Dose: 40 mg Docusate Sodium (Colace) 100 mg PO TID [facility] Last Admin: 09/26/17 17:56 Dose: 100 mg Finasteride (Proscar) 5 mg PO HS [facility] Last Admin: 09/26/17 21:12 Dose: 5 mg Furosemide (Lasix) 80 mg PO DAILY [facility] Last Admin: 09/26/17 09:08 Dose: 80 mg Gemfibrozil (Lopid) 600 mg PO BID [facility] Last Admin: 09/26/17 17:56 Dose: 600 mg Insulin Human Lispro (Humalog Low) 0 units SC AC [facility] PRN Reason: Protocol Last Admin: 09/26/17 17:55 Dose: 2 units Insulin Human NPH (Humulin N) [facility] Last Admin: 09/26/17 17:54 Dose: 25 units Magnesium Oxide (Mag-Ox) 800 mg PO BID [facility] Last Admin: 09/26/17 17:56 Dose: 800 mg Metoprolol Tartrate (Lopressor) 25 mg PO BID [facility] Last Admin: 09/27/17 06:08 Dose: Not Given Polyethylene Glycol (Miralax) 17 gm PO BID [facility] Last Admin: 09/26/17 17:55 Dose: 17 gm Potassium Chloride (K-Dur 20 Meq Er Tab) 20 meq PO BID [facility] Last Admin: 09/26/17 17:56 Dose: 20 meq - Labs Labs: 09/27/17 04:00 09/27/17 04:00 PT 14.1 SECONDS (9.4-12.5) H 09/27/17 04:00 INR 1.23 (0.93-1.08) H 09/27/17 04:00 APTT 46.7 Seconds (25.1-36.5) H 09/27/17 04:00 Assessment and Plan - Assessment and Plan (Free Text) Assessment: Admitted for elective high risk lap. karlos, found to be in AF, new CAD/CT/CABG/Sev. LVD Valvular Heart Disease: Sev , TR and PH PVD Gout BPH Gall Stones with frequent symptoms. Mentaly Challenged Plan: As per Surgery>lap karlos today Avoid hypotension and volume shifts intraoperatively. High Cardiac Risk. Fully discussed with the patient and his sisters by me. Monitor: labs, I/O, sats, tel., etc Probably ICU bed post op.
[2017-09-27] MEDS: Insulin Lispro (humaLOG) LOW Coverage SC SCH ×3 (07:54→16:47)
[2017-09-27] MEDS: Insulin Human NPH 1 UNITS/0.01 ML SC SCH ×2 (07:55→16:47)
[2017-09-27] MEDS ORDERED: Midazolam 2 MG/2 ML VIAL ONE (08:30)
[2017-09-27] MEDS ORDERED: Rocuronium 10 mg/ml (5 ml) ONE (08:39)
[2017-09-27] MEDS ORDERED: Succinylcholine 200 mg/10 ml Inj IV ONE (08:39)
[2017-09-27] MEDS ORDERED: Etomidate 20 mg/10ml Inj IV ONE (08:39)
[2017-09-27] MEDS ORDERED: Phenylephrine 10 mg/ml Inj ONE (08:39)
[2017-09-27] MEDS ORDERED: Bupivacaine 0.5% Inj(30mL) ONE (08:44)
[2017-09-27] MEDS ORDERED: Liquid Adhesive TOP ONE (08:44)
[2017-09-27] MEDS ORDERED: Iohexol 240 (50 ml) ONE (08:44)
[2017-09-27] MEDS ORDERED: Desflurane Inhalation Anesthetic Liq (240 ml) ONE (10:06)
[2017-09-27] MEDS ORDERED: Neostigmine Methylsulfate 3mg/3ml Syringe IV ONE (10:15)
[2017-09-27] MEDS: Potassium Chloride 20 mEq ER Tab PO SCH ×2 (11:04→17:37)
[2017-09-27] MEDS: POLYETHYLENE GLYCOL 3350 17 GM/Dose PACKET PO SCH ×2 (11:05→17:38)
[2017-09-27] MEDS: Magnesium Oxide 400 mg Tab UD PO SCH ×2 (11:05→17:37)
--- NOTE | 2017-09-27 11:13 | PCM.SURG1 ---
Surgeon's Initial Post Op Note - Surgeon's Notes Surgeon: Dr. Ramires Manager Of Human Resources: Roxanna Moya, PGY2 Type of Anesthesia: General Endo Anesthesia Administered By: Dr. Cespedes Pre-Operative Diagnosis: Chornic cholecystitis, cholelithiasis Operative Findings: Numerous adhesions in the right upper quadrant around the liver and gallbladder, thick gall bladder wall. Intraoperative cholangiogram performed demonstrating normal biliary tree anatomy and no filling defects Post-Operative Diagnosis: same Operation Performed: laparoscopic cholecystectomy Specimen/Specimens Removed: gallbladder Estimated Blood Loss: EBL {In ML}: 10 Date of Surgery/Procedure: 09/27/17 Time of Surgery/Procedure: 09:00
--- NOTE | 2017-09-27 11:39 | RAD ---
PROCEDURE: Intraoperative cholangiogram HISTORY: ACUTE CHOLELITHIASIS COMPARISON: None TECHNIQUE: Standard protocol for this study/examination. FINDINGS: Total fluoroscopic time (continuous mode) utilized during the procedure 40.1 (seconds). Total exam DLP: (mGy) 14.77 IMPRESSION: Less than 1 hr fluoroscopic time utilized during performance of the procedure.
--- NOTE | 2017-09-27 14:14 | CP.PCM.CON ---
<Maury Garcia - Last Filed: 09/27/17 15:14> History of Present Illness - History of Present Illness History of Present Illness: ICU consult note for Dr. Ponce Patient is a 72M with PMH of CAD, NE, CABG, aortic stenosis, and tricuspid regurgitation on aspirin at home with chronic cholecystitis and cholelithiasis who presented for an outpatient laparoscopic cholecystectomy. Patient was evaluated by cardiology prior to procedure and given a high risk by Dr. Ram prior to surgery with EKG on 09/03 with normal sinus rhythm. Patient was here for outpatient cholecystectomy on Saturday but was found in new onset atrial fibrillation once he got on the table. As per cardiology patient was started on h eparin drip which was stopped at 3 a.m. this morning. Patient then underwent an uneventful lap cholecystectomy and was stable throughout. Patient was able to be extubated. As per surgery heparin drip can be started at 0800 tomorrow morning, boluses not needed. Pt was transferred to the OR and on the OR table after fentanyl administration was noted to have an irregular rhythm on the sign builder. PMH: CAD, NE, aortic stenosis, and tricuspid regurgitation, HTN, HLD PSH: CABG, appendectomy ALL: NKDA Review of Systems - Constitutional Constitutional: absent: Chills, Fever - EENT Eyes: absent: Change in Vision Ears: absent: Dizziness - Cardiovascular Cardiovascular: absent: Chest Pain, Dyspnea - Respiratory Respiratory: absent: Cough, Dyspnea, Wheezing - Gastrointestinal Gastrointestinal: absent: Diarrhea, Nausea, Vomiting - Genitourinary Genitourinary: absent: Dysuria - Neurological Neurological: absent: Dizziness, Numbness - Psychiatric Psychiatric: absent: Anxiety Past Patient History - Past Medical History & Family History Past Medical History?: Yes Past Family History: Reviewed and not pertinent - Past Social History Smoking Status: Former Smoker - CARDIAC Hx Cardiac Disorders: Yes (CABG) Hx Hypercholesterolemia: Yes Hx Hypertension: Yes Other/Comment: aortic stenosis, tricuspid regurgitation - PULMONARY Hx Respiratory Disorders: No - NEUROLOGICAL Hx Neurological Disorder: No - HEENT Hx HEENT Problems: Yes Hx Cataracts: Yes (b/l cataract: sx to L eye) - RENAL Hx Chronic Kidney Disease: No - ENDOCRINE/METABOLIC Hx Endocrine Disorders: Yes Hx Diabetes Mellitus Type 2: Yes - HEMATOLOGICAL/ONCOLOGICAL Hx Blood Transfusions: No Hx Blood Transfusion Reaction: No - INTEGUMENTARY Hx Dermatological Problems: No - MUSCULOSKELETAL/RHEUMATOLOGICAL Hx Musculoskeletal Disorders: Yes Hx Arthritis: Yes Hx Back Pain: Yes Hx Falls: Yes Hx Gout: Yes - GASTROINTESTINAL Hx Gastrointestinal Disorders: Yes Hx Gall Bladder Disease: Yes - GENITOURINARY/GYNECOLOGICAL Hx Genitourinary Disorders: No Hx Prostate Problems: Yes (bph) - PSYCHIATRIC Hx Psychophysiologic Disorder: No Hx Substance Use: No - SURGICAL HISTORY Hx Surgeries: Yes (CABPG & Left Arm Embolectomy 15 yrs ago, AP as child) - ANESTHESIA Hx Anesthesia Reactions: No Hx Malignant Hyperthermia: No Meds Allergies/Adverse Reactions: Allergies Allergy/AdvReac Type Severity Reaction Status Date / Time No Known Allergies Allergy Verified 03/18/16 12:09 - Medications Medications: Current Medications Allopurinol (Zyloprim) 300 mg PO DAILY [facility] Last Admin: 09/27/17 11:05 Dose: Not Given Aspirin (Ecotrin) 81 mg PO DAILY [facility] Last Admin: 09/25/17 10:49 Dose: 81 mg Atorvastatin Calcium (Lipitor) 40 mg PO DIN [facility] Last Admin: 09/26/17 17:56 Dose: 40 mg Docusate Sodium (Colace) 100 mg PO TID [facility] Last Admin: 09/27/17 11:04 Dose: Not Given Fentanyl (Fentanyl) 25 mcg IV Q5M PRN PRN Reason: Pain, moderate (4-7) Finasteride (Proscar) 5 mg PO HS [facility] Last Admin: 09/26/17 21:12 Dose: 5 mg Furosemide (Lasix) 80 mg PO DAILY [facility] Last Admin: 09/27/17 11:04 Dose: Not Given Gemfibrozil (Lopid) 600 mg PO BID [facility] Last Admin: 09/27/17 11:04 Dose: Not Given Insulin Human Lispro (Humalog Low) 0 units SC [facility] PRN Reason: Protocol Last Admin: 09/27/17 07:54 Dose: Not Given Insulin Human NPH (Humulin N) 25 units SC [facility] Last Admin: 09/27/17 07:55 Dose: Not Given Magnesium Oxide (Mag-Ox) 800 mg PO BID [facility] Last Admin: 09/27/17 11:05 Dose: Not Given Metoprolol Tartrate (Lopressor) 25 mg PO BID [facility] Last Admin: 09/27/17 11:05 Dose: Not Given Ondansetron HCl (Zofran Inj) 4 mg IVP ONCE PRN PRN Reason: Nausea/Vomiting Polyethylene Glycol (Miralax) 17 gm PO BID [facility] Last Admin: 09/27/17 11:05 Dose: Not Given Potassium Chloride (K-Dur 20 Meq Er Tab) 20 meq PO BID [facility] Last Admin: 09/27/17 11:04 Dose: Not Given Physical Exam - Head Exam Head Exam: ATRAUMATIC, NORMAL INSPECTION - Eye Exam Eye Exam: EOMI, Normal appearance - Respiratory Exam Respiratory Exam: absent: Clear to Auscultation Bilateral, NORMAL BREATHING PATTERN - Cardiovascular Exam Cardiovascular Exam: REGULAR RHYTHM, +S1, Systolic Murmur - GI/Abdominal Exam GI & Abdominal Exam: Normal Bowel Sounds, Soft - Neurological Exam Neurological exam: Alert, Oriented x3 - Skin Skin Exam: Intact, Normal Color, Warm Additional comments: incisions for choley Results - Vital Signs Recent Vital Signs: Last Vital Signs Temp 98.3 F 09/27/17 11:08 Pulse 77 09/27/17 12:00 Resp 18 09/27/17 12:00 BP 114/68 09/27/17 08:40 Pulse Ox 99 09/27/17 12:00 - Labs Result Diagrams: 09/27/17 04:00 09/27/17 04:00 Labs: Laboratory Results - last 24 hr 09/26/17 09/26/17 09/26/17 11:16 16:05 20:08 WBC RBC Hgb Hct MCV MCH MCHC RDW Plt Count MPV PT INR APTT Sodium Potassium Chloride Carbon Dioxide Anion Gap BUN Creatinine Est GFR ( Amer) Est GFR (Non-Af Amer) POC Glucose (mg/dL) 162 H 210 H Random Glucose Calcium Magnesium Total Bilirubin Direct Bilirubin AST ALT Alkaline Phosphatase Total Protein Albumin Globulin Albumin/Globulin Ratio Urine Color Light yellow Urine Appearance Clear Urine pH 7.0 Ur Specific [place] 1.010 Urine Protein Negative Urine Glucose (UA) Negative Urine Ketones Negative Urine Blood Negative Urine Nitrate Negative Urine Bilirubin Negative Urine Urobilinogen 0.2 Ur Leukocyte Esterase Negative Blood Type Antibody Screen BBK History Checked 09/26/17 09/27/17 09/27/17 21:22 04:00 04:00 WBC RBC Hgb Hct MCV MCH MCHC RDW Plt Count MPV PT 14.1 H INR 1.23 H APTT 46.7 H Sodium 140 Potassium 4.3 Chloride 99 Carbon Dioxide 30 Anion Gap 15 BUN 25 H Creatinine 0.9 Est GFR ( Amer) > 60 Est GFR (Non-Af Amer) > 60 POC Glucose (mg/dL) 206 H Random Glucose 113 H Calcium 9.9 Magnesium 2.7 H Total Bilirubin 0.8 Direct Bilirubin 0.3 AST 32 ALT 32 Alkaline Phosphatase 52 Total Protein 7.0 Albumin 3.9 Globulin 3.1 Albumin/Globulin Ratio 1.2 Urine Color Urine Appearance Urine pH Ur Specific [place] Urine Protein Urine Glucose (UA) Urine Ketones Urine Blood Urine Nitrate Urine Bilirubin Urine Urobilinogen Ur Leukocyte Esterase Blood Type Antibody Screen BBK History Checked 09/27/17 09/27/17 04:00 04:00 WBC 8.3 RBC 3.88 Hgb 11.2 L Hct 34.0 L MCV 87.6 MCH 28.9 MCHC 32.9 RDW 14.8 H Plt Count 175 MPV 8.9 PT INR APTT Sodium Potassium Chloride Carbon Dioxide Anion Gap BUN Creatinine Est GFR ( Amer) Est GFR (Non-Af Amer) POC Glucose (mg/dL) Random Glucose Calcium Magnesium Total Bilirubin Direct Bilirubin AST ALT Alkaline Phosphatase Total Protein Albumin Globulin Albumin/Globulin Ratio Urine Color Urine Appearance Urine pH Ur Specific [place] Urine Protein Urine Glucose (UA) Urine Ketones Urine Blood Urine Nitrate Urine Bilirubin Urine Urobilinogen Ur Leukocyte Esterase Blood Type A NEGATIVE Antibody Screen Negative BBK History Checked Patient has bt Assessment & Plan - Assessment and Plan (Free Text) Assessment: Patient is a 72M with PMH of CAD, NE, CABG, aortic stenosis, and tricuspid regurgitation on aspirin at home with chronic cholecystitis with new onset atrial fibrillation s/p cholecystectomy. Plan: Neuro -AAO x 3 Cardiovascular -Maintain MAP>65 -Maintain normotensive -Patient has new onset atrial fibrillation for which heparin drip was initially started then placed on hold for cholecystectomy. Patient will be re-started on heparin without bolus tomorrow moring at 8 am. Pulmonary -Maintain SpO2 >92% -Continue with O2 supplementation PRN Gastrointestinal -Continue with liquid diet as per Gen surg -GI prophylaxis Endocrine -Maintain euglycemia and normothermia -Continue with Humulin ACBD, and ISS-low -COntinue with accuchecks Renal -Monitor I&O -Maintain euvolemia -Replete electrolytes as needed Genitourinary -Continue with finasteride Musculoskeletal -Continue with allopurinol <Reggie Ponce - Last Filed: 09/27/17 16:18> Meds - Medications Medications: Current Medications Allopurinol (Zyloprim) 300 mg PO DAILY [facility] Last Admin: 09/27/17 11:05 Dose: Not Given Aspirin (Ecotrin) 81 mg PO DAILY [facility] Last Admin: 09/25/17 10:49 Dose: 81 mg Atorvastatin Calcium (Lipitor) 40 mg PO DIN [facility] Last Admin: 09/26/17 17:56 Dose: 40 mg Docusate Sodium (Colace) 100 mg PO TID [facility] Last Admin: 09/27/17 14:33 Dose: 100 mg Fentanyl (Fentanyl) 25 mcg IV Q5M PRN PRN Reason: Pain, moderate (4-7) Finasteride (Proscar) 5 mg PO HS [facility] Last Admin: 09/26/17 21:12 Dose: 5 mg Furosemide (Lasix) 80 mg PO DAILY [facility] Last Admin: 09/27/17 11:04 Dose: Not Given Gemfibrozil (Lopid) 600 mg PO BID [facility] Last Admin: 09/27/17 11:04 Dose: Not Given Insulin Human Lispro (Humalog Low) 0 units SC AC [facility] PRN Reason: Protocol Last Admin: 09/27/17 14:31 Dose: Not Given Insulin Human NPH (Humulin N) 25 units [facility] Last Admin: 09/27/17 07:55 Dose: Not Given Magnesium Oxide (Mag-Ox) 800 mg PO BID [facility] Last Admin: 09/27/17 11:05 Dose: Not Given Metoprolol Tartrate (Lopressor) 25 mg PO BID [facility] Last Admin: 09/27/17 11:05 Dose: Not Given Ondansetron HCl (Zofran Inj) 4 mg IVP ONCE PRN PRN Reason: Nausea/Vomiting Pantoprazole Sodium (Protonix Inj) 40 mg IVP DAILY [facility] Polyethylene Glycol (Miralax) 17 gm PO BID [facility] Last Admin: 09/27/17 11:05 Dose: Not Given Potassium Chloride (K-Dur 20 Meq Er Tab) 20 meq PO BID [facility] Last Admin: 09/27/17 11:04 Dose: Not Given Results - Vital Signs Recent Vital Signs: Last Vital Signs Temp 98.3 F 09/27/17 11:08 Pulse 77 09/27/17 12:00 Resp 18 05/04/18 12:00 BP 114/68 09/27/17 08:40 Pulse Ox 99 09/27/17 12:00 - Labs Result Diagrams: 09/27/17 04:00 09/27/17 04:00 Labs: Laboratory Results - last 24 hr 09/26/17 09/26/17 09/26/17 16:05 20:08 21:22 WBC RBC Hgb Hct MCV MCH MCHC RDW Plt Count MPV PT INR APTT Sodium Potassium Chloride Carbon Dioxide Anion Gap BUN Creatinine Est GFR ( Amer) Est GFR (Non-Af Amer) POC Glucose (mg/dL) 210 H 206 H Random Glucose Calcium Magnesium Total Bilirubin Direct Bilirubin AST ALT Alkaline Phosphatase Total Protein Albumin Globulin Albumin/Globulin Ratio Urine Color Light yellow Urine Appearance Clear Urine pH 7.0 Ur Specific [place] 1.010 Urine Protein Negative Urine Glucose (UA) Negative Urine Ketones Negative Urine Blood Negative Urine Nitrate Negative Urine Bilirubin Negative Urine Urobilinogen 0.2 Ur Leukocyte Esterase Negative Blood Type Antibody Screen BBK History Checked 09/27/17 09/27/17 09/27/17 04:00 04:00 04:00 WBC RBC Hgb Hct MCV MCH MCHC RDW Plt Count MPV PT 14.1 H INR 1.23 H APTT 46.7 H Sodium 140 Potassium 4.3 Chloride 99 Carbon Dioxide 30 Anion Gap 15 BUN 25 H Creatinine 0.9 Est GFR ( Amer) > 60 Est GFR (Non-Af Amer) > 60 POC Glucose (mg/dL) Random Glucose 113 H Calcium 9.9 Magnesium 2.7 H Total Bilirubin 0.8 Direct Bilirubin 0.3 AST 32 ALT 32 Alkaline Phosphatase 52 Total Protein 7.0 Albumin 3.9 Globulin 3.1 Albumin/Globulin Ratio 1.2 Urine Color Urine Appearance Urine pH Ur Specific [place] Urine Protein Urine Glucose (UA) Urine Ketones Urine Blood Urine Nitrate Urine Bilirubin Urine Urobilinogen Ur Leukocyte Esterase Blood Type A NEGATIVE Antibody Screen Negative BBK History Checked Patient has bt 09/27/17 09/27/17 04:00 15:46 WBC 8.3 RBC 3.88 Hgb 11.2 L Hct 34.0 L MCV 87.6 MCH 28.9 MCHC 32.9 RDW 14.8 H Plt Count 175 MPV 8.9 PT INR APTT Sodium Potassium Chloride Carbon Dioxide Anion Gap BUN Creatinine Est GFR ( Amer) Est GFR (Non-Af Amer) POC Glucose (mg/dL) 216 H Random Glucose Calcium Magnesium Total Bilirubin Direct Bilirubin AST ALT Alkaline Phosphatase Total Protein Albumin Globulin Albumin/Globulin Ratio Urine Color Urine Appearance Urine pH Ur Specific [place] Urine Protein Urine Glucose (UA) Urine Ketones Urine Blood Urine Nitrate Urine Bilirubin Urine Urobilinogen Ur Leukocyte Esterase Blood Type Antibody Screen BBK History Checked Assessment & Plan - Assessment and Plan (Free Text) Plan: Patient seen and examined with resident, agree with note with following additions/exceptions: Patient is a 72M with PMH of CAD, NE, CABG, aortic stenosis, and tricuspid regurgitation on aspirin at home with chronic cholecystitis with new onset atrial fibrillation s/p cholecystectomy. Periop pt went into rapid afib, started on heparin drip, discontinued for procedure today. Tolerated lap karlos well, no complications, doing well. Cont with ASA, BB,statin, hold heparin for tonight as per surgery. Duonebs PRN FS control Resume diet GI ppx DVT ppx Monitor in MICU
--- NOTE | 2017-09-27 14:36 | PN ---
DATE: 09/27/2017 LOCATION: The patient is in room 273, bed 1. SUBJECTIVE: The patient is in the process of being sent to the operating room. Overnight nurse's notes were reviewed. There is no overnight adverse events documented. PHYSICAL EXAMINATION VITAL SIGNS: T-max 98.4; telemetry, atrial fibrillation; heart rate 78, 76, 80; blood pressure 114/68, 117/69; respirations 20; and O2 sat 98%. HEAD: Normocephalic, atraumatic. EENT: Shows pinkish conjunctivae. Anicteric sclerae. No oropharyngeal lesion. No neck rigidity. CHEST: Kyphosis. Positive median sternotomy surgical scar. No rales, crackles or wheezing. Questionable decreased breath sound at the left base. ABDOMEN: Protuberant, obese. Positive bowel sound. GENITALIA: Male. RECTAL: Deferred. EXTREMITY: Shows no pitting edema, no calf tenderness, no Homans' sign. MUSCULOSKELETAL: Shows a body mass index of 30. NEUROLOGIC: The patient is alert, awake, responsive. He is able to move upper and lower extremity without assistance. Gait examination is not tested. VASCULAR: Palpable pulses. DIAGNOSTICS: On 09/27/2017 is WBC 8.3, hemoglobin/hematocrit 11.2/34.0, platelet 175. PT/PTT 14.1/46.7. Sodium 140, potassium 4.3, chloride 99, CO2 of 30, anion gap 15, BUN 25, creatinine 0.9, GFR greater than 60, glucose 113, calcium 9.9, magnesium 2.7. LFTs are normal. Urinalysis is negative. Blood type A negative. Chest x-ray, median sternotomy surgical scar. EKG, atrial fibrillation, left axis deviation, right bundle-branch block. ASSESSMENT: 1. Cholecystitis. 2. Cholelithiasis. 3. New onset atrial fibrillation. 4. Right bundle-branch block. 5. Dilated ischemic cardiomyopathy. 6. Severe aortic stenosis. 7. Pulmonary hypertension and tricuspid regurgitation. 8. History of coronary artery disease, coronary artery bypass graft. 9. Normocytic anemia. 10. Insulin-requiring diabetes mellitus with hyperglycemia and hemoglobin A1c of 7.3. 11. Hypertriglyceridemia. 12. Transient hypercalcemia. 13. Morbid obesity. 14. History of poor compliance. 15. High risk for surgical intervention. PLAN: At this time, the patient is on his way for cholecystectomy today. Plan at this time, postoperatively, the patient should be admitted to ICU. Current consultation with Surgery and Cardiology. Current medications as per MAR, Colace 100 mg three times a day, aspirin 81 mg daily, Humalog low-dose sliding scale coverage, NPH 25 units at breakfast and dinner, K-Dur 20 mEq twice a day, Lasix 80 mg daily, Lipitor 40 mg daily, Lopid 600 mg twice a day, Lopressor 25 mg twice a day, magnesium oxide 800 mg twice a day, MiraLax 17 g twice a day, Proscar 5 mg at bedtime, Zyloprim 300 mg daily, oxygen 2 liters continuous. The patient will be monitored postop very closely. The patient and the patient's sister has been told that the patient is high risk for surgical intervention. The patient and the patient's family aware of above and understand the risk and consequences. Dictated and electronically signed, not read. Brandyn Erickson MD
[2017-09-28 06:49] LABS: ALB/GLOB RATIO 1.2 (1.1-1.8); ALBUMIN 3.9 g/dL (3.0-4.8); ALT/SGPT 48 U/L (7-56); AST/SGOT 68 U/L (17-59); BILIRUBIN,DIRECT 0.4 mg/dL (0.0-0.4); BLOOD UREA NITROGEN 21 mg/dL (7-21); CALCIUM 9.9 mg/dL (8.4-10.5); GFR AFRICAN-AMERICAN > 60; GFR NON-AFRICAN AMERICAN > 60
[2017-09-28 07:18] LABS: INR 1.37 (0.93-1.08); PROTHROMBIN TIME 15.9 SECONDS (9.4-12.5)
[2017-09-28] MEDS: Insulin Lispro (humaLOG) LOW Coverage SC SCH ×3 (08:51→17:04)
[2017-09-28] MEDS: Insulin Human NPH 1 UNITS/0.01 ML SC SCH ×2 (08:52→17:03)
[2017-09-28] MEDS ORDERED: Morphine 4 mg/ml ISec IVP PRN (09:21)
[2017-09-28] MEDS ORDERED: Sod Polystyrene Sulf 15 gm/60 ml Susp PO ONE (09:26)
[2017-09-28] MEDS: POLYETHYLENE GLYCOL 3350 17 GM/Dose PACKET PO SCH ×2 (09:32→17:03)
[2017-09-28 09:50] LABS: BASO # 0.01 K/mm3 (0.0-2.0); BASO % 0.1 % (0.0-3.0); EOS # 0.1 (0.0-0.7); EOS % 0.4 % (1.5-5.0); GRAN # 10.33 (1.4-6.5); GRAN % 78.6 % (50.0-68.0); HEMOGLOBIN 11.8 g/dL (14.0-18.0); LYMPH # 1.5 (1.2-3.4); LYMPH % 11.3 % (22.0-35.0); MEAN CELL VOLUME 89.7 fl (80.0-105.0); MEAN CORPUSCULAR HEMOGLOBIN 28.9 pg (25.0-35.0); MEAN CORPUSCULAR HGB CONC 32.2 g/dl (31.0-37.0); MEAN PLATELET VOLUME 9.4 fl (7.0-11.0); MONO # 1.3 (0.1-0.6); MONO % 9.6 % (1.0-6.0); RBC 4.08 10^6/uL (3.5-6.1); RED CELL DISTRIBUTION WIDTH 15.1 % (11.5-14.5); WHITE BLOOD COUNT 13.1 10^3/ul (4.5-11.0)
--- NOTE | 2017-09-28 09:52 | CP.PCM.PN ---
Subjective - Date & Time of Evaluation Date of Evaluation: 09/28/17 Time of Evaluation: 07:05 - Subjective Subjective: Patient seen and examined on rounds. Reports to be doing well, is oriented to place and person. No major complaints. Objective - Vital Signs/Intake and Output Vital Signs (last 24 hours): Temp Pulse Resp BP Pulse Ox 98.8 F 106 H 22 158/88 H 86 L 09/28/17 00:00 09/28/17 09:31 09/27/17 20:40 09/28/17 09:31 09/27/17 20:10 Intake and Output: 09/28/17 09/28/17 06:59 18:59 Intake Total 100 Output Total 1330 Balance -1230 - Medications Medications: Current Medications Allopurinol (Zyloprim) 300 mg PO DAILY [facility] Last Admin: 09/28/17 09:31 Dose: 300 mg Aspirin (Ecotrin) 81 mg PO DAILY [facility] Last Admin: 09/25/17 10:49 Dose: 81 mg Atorvastatin Calcium (Lipitor) 40 mg PO DIN [facility] Last Admin: 09/27/17 17:38 Dose: 40 mg Docusate Sodium (Colace) 100 mg PO TID [facility] Last Admin: 09/28/17 09:31 Dose: 100 mg Fentanyl (Fentanyl) 25 mcg IV Q5M PRN PRN Reason: Pain, moderate (4-7) Finasteride (Proscar) 5 mg PO HS [facility] Last Admin: 09/27/17 21:52 Dose: 5 mg Furosemide (Lasix) 80 mg PO DAILY [facility] Last Admin: 09/28/17 09:31 Dose: 80 mg Gemfibrozil (Lopid) 600 mg PO BID [facility] Last Admin: 09/28/17 09:31 Dose: 600 mg Insulin Human Lispro (Humalog Low) 0 units SC AC [facility] PRN Reason: Protocol Last Admin: 09/28/17 08:51 Dose: 1 units Insulin Human NPH (Humulin N) [facility] Last Admin: 09/28/17 08:52 Dose: 25 units Magnesium Oxide (Mag-Ox) 400 mg PO BID [facility] Metoprolol Tartrate (Lopressor) 25 mg PO BID [facility] Last Admin: 09/28/17 09:31 Dose: 25 mg Morphine Sulfate (Morphine) 2 mg IVP Q6H PRN PRN Reason: Pain, severe (8-10) Ondansetron HCl (Zofran Inj) 4 mg IVP ONCE PRN PRN Reason: Nausea/Vomiting Pantoprazole Sodium (Protonix Inj) 40 mg IVP DAILY [facility] Last Admin: 09/28/17 09:32 Dose: 40 mg Polyethylene Glycol (Miralax) 17 gm PO BID [facility] Last Admin: 09/28/17 09:32 Dose: 17 gm Tamsulosin HCl (Flomax) 0.4 mg PO BID [facility] Last Admin: 09/28/17 09:32 Dose: 0.4 mg - Labs Labs: 09/27/17 04:00 09/28/17 05:00 PT 15.9 SECONDS (9.4-12.5) H 09/28/17 05:00 INR 1.37 (0.93-1.08) H 09/28/17 05:00 APTT 31.0 Seconds (25.1-36.5) 09/28/17 05:00 - Constitutional Appears: Non-toxic, No Acute Distress - Eye Exam Eye Exam: Normal appearance - ENT Exam ENT Exam: Mucous Membranes Moist - Respiratory Exam Respiratory Exam: Clear to Ausculation Bilateral, NORMAL BREATHING PATTERN - Cardiovascular Exam Cardiovascular Exam: Irregular Rhythm, +S1, +S2 - GI/Abdominal Exam GI & Abdominal Exam: Soft, Normal Bowel Sounds - Extremities Exam Extremities Exam: Pedal Edema - Neurological Exam Neurological Exam: Alert, Awake Assessment and Plan - Assessment and Plan (Free Text) Assessment: Patient is a 72M with PMH of CAD, [place], CABG, aortic stenosis, and tricuspid regurgitation on aspirin at home with chronic cholecystitis with new onset atrial fibrillation s/p cholecystectomy. Periop pt went into rapid afib, started on heparin drip, discontinued for procedure ty. Tolerated lap karlos well, no complications, doing well. Currently afebrile, HD stable, comfortable in NAD, HR 100-120s. CBC pending. s/p Cholecystectomy Afib CAD Hx CABG Recommend: - Cont with ASA, BB, statin, resume Heparin drip - increase Lopressor to 50mg BID PO - Duonebs PRN - follow up surgery - DC arterial line - follow up CBC - FS control - Resume diet - GI ppx - DVT ppx - Stable, transfer to telemetry
--- NOTE | 2017-09-28 10:21 | CP.PCM.PN ---
Subjective - Date & Time of Evaluation Date of Evaluation: 09/28/17 Time of Evaluation: 08:00 - Subjective Subjective: General Surgery Note for Dr. Ramires Patient seen and examined at bedside. Patient was confused overnight and received 2 doses of Ativan. Linder was placed due to urinary retention. Patient had 750 cc of output since insertion. This morning, patient is more oriented. Linder catheter will be removed. He complains of mild pain but states controlled. He is tolerating diet. Objective - Vital Signs/Intake and Output Vital Signs (last 24 hours): Temp Pulse Resp BP Pulse Ox 98.8 F 106 H 22 158/88 H 86 L 09/28/17 00:00 09/28/17 09:31 09/27/17 20:40 09/28/17 09:31 09/27/17 20:10 Intake and Output: 09/28/17 09/28/17 06:59 18:59 Intake Total 100 Output Total 1330 Balance -1230 - Medications Medications: Current Medications Allopurinol (Zyloprim) 300 mg PO DAILY [facility] Last Admin: 09/28/17 09:31 Dose: 300 mg Aspirin (Ecotrin) 81 mg PO DAILY [facility] Last Admin: 09/25/17 10:49 Dose: 81 mg Atorvastatin Calcium (Lipitor) 40 mg PO DIN [facility] Last Admin: 09/27/17 17:38 Dose: 40 mg Docusate Sodium (Colace) 100 mg PO TID [facility] Last Admin: 09/28/17 09:31 Dose: 100 mg Fentanyl (Fentanyl) 25 mcg IV Q5M PRN PRN Reason: Pain, moderate (4-7) Finasteride (Proscar) 5 mg PO HS [facility] Last Admin: 09/27/17 21:52 Dose: 5 mg Furosemide (Lasix) 80 mg PO DAILY [facility] Last Admin: 09/28/17 09:31 Dose: 80 mg Gemfibrozil (Lopid) 600 mg PO BID [facility] Last Admin: 09/28/17 09:31 Dose: 600 mg Insulin Human Lispro (Humalog Low) 0 units SC AC [facility] PRN Reason: Protocol Last Admin: 09/28/17 08:51 Dose: 1 units Insulin Human NPH (Humulin N) 25 units SC ACBD [facility] Last Admin: 09/28/17 08:52 Dose: 25 units Magnesium Oxide (Mag-Ox) 400 mg PO BID [facility] Metoprolol Tartrate (Lopressor) 25 mg PO BID [facility] Last Admin: 09/28/17 09:31 Dose: 25 mg Morphine Sulfate (Morphine) 2 mg IVP Q6H PRN PRN Reason: Pain, severe (8-10) Ondansetron HCl (Zofran Inj) 4 mg IVP ONCE PRN PRN Reason: Nausea/Vomiting Pantoprazole Sodium (Protonix Inj) 40 mg IVP DAILY [facility] Last Admin: 09/28/17 09:32 Dose: 40 mg Polyethylene Glycol (Miralax) 17 gm PO BID [facility] Last Admin: 09/28/17 09:32 Dose: 17 gm Tamsulosin HCl (Flomax) 0.4 mg PO BID [facility] Last Admin: 09/28/17 09:32 Dose: 0.4 mg - Labs Labs: 09/28/17 09:45 09/28/17 05:00 PT 15.9 SECONDS (9.4-12.5) H 09/28/17 05:00 INR 1.37 (0.93-1.08) H 09/28/17 05:00 APTT 31.0 Seconds (25.1-36.5) 09/28/17 05:00 - Constitutional Appears: No Acute Distress - Head Exam Head Exam: ATRAUMATIC, NORMOCEPHALIC - Eye Exam Eye Exam: Normal appearance - ENT Exam ENT Exam: Mucous Membranes Moist - Respiratory Exam Respiratory Exam: NORMAL BREATHING PATTERN - Cardiovascular Exam Cardiovascular Exam: REGULAR RHYTHM - GI/Abdominal Exam GI & Abdominal Exam: Soft, Tenderness (mild near incisions), Normal Bowel Sounds. absent: Distended, Firm, Guarding, Rigid, Rebound Additional comments: surgical sites clean, dry and intact - Exam Additional comments: linder catheter in place - Extremities Exam Extremities Exam: Normal Capillary Refill - Neurological Exam Neurological Exam: Alert, Awake - Psychiatric Exam Psychiatric exam: Normal Affect, Normal Mood - Skin Skin Exam: Dry, Intact, Warm Assessment and Plan - Assessment and Plan (Free Text) Assessment: 72 M s/p laparoscopic cholecystectomy POD#1 Plan: -HHD -IV antibiotics -Analgesics/Anti-emetics PRN -Discontinue Linder catheter -Transfer out of ICU to telemetry -Discussed with Dr. Keyla Falk PGY1
--- NOTE | 2017-09-28 14:48 | PN ---
DATE: 09/28/2017 SUBJECTIVE: The patient is seen in ICU bed #6. The patient is lying in the bed, requesting a bedpan. The patient is awake, responsive. Overnight nurse's notes were reviewed. The patient was intermittently sleeping. The patient was episodically confused and restless, required IV Ativan. The patient required a Tamez catheter placement because of urinary retention. The patient had a 16-[place] Tamez inserted. PHYSICAL EXAMINATION: VITAL SIGNS: T-max is 98.6, telemetry shows atrial fibrillation, heart rate in 80s, low 100s, low 90s. Blood pressure ranging in the last 12 to 24 hours 150/98, 149/104, 208/107, 135/88, 122/72, 146/72, 134/73, 137/82, 114/68, 119/77, 109/66. Respiration is not correctly documented but average looks like around 20s. O2 sat is 98%, 95%, 100%. INTAKE/OUTPUT: Output is 1330. GENERAL: The patient is seen lying in the bed. The patient is alert, awake, responsive. He is able to state his name correctly, able to state my name correctly, and able to state that he is in [facility]. HEENT: Head, normocephalic, atraumatic. HEENT examination shows pinkish pale conjunctivae. Anicteric sclerae. No oropharyngeal lesion. No neck rigidity. CHEST: Shows kyphosis with median sternotomy surgical scar. LUNGS: Show occasional rhonchi in upper lung harris anteriorly. CARDIOVASCULAR: S1 and S2 with regular rhythm. Positive systolic murmur at the left sternal border, right second intercostal space, left second intercostal space. ABDOMEN: Protuberant. Positive bowel sound. Positive laparoscopic cholecystectomy surgical scar. Positive diffuse voluntary guarding noted. No hepatosplenomegaly palpated. GENITALIA: Male. RECTAL: Positive Tamez catheter. EXTREMITIES: Shows no pitting, no calf numbness, no Homans sign. NEUROLOGIC: The patient is alert, awake, responsive. He is able to state his name, my name, and place. Cranial nerves II through XII limited. MUSCULOSKELETAL: Shows a body mass index of 30. DIAGNOSTICS: The 09/28/2017 labs are still pending. CMP is available which shows sodium 142, potassium 5.3, chloride 102, CO2 29, anion gap 15, BUN 21, creatinine 0.9, GFR greater than 60, glucose 179, 214, calcium 9.9, magnesium 2.7, AST is 68. CBC results are still pending from today. Intraoperative cholangiogram was reviewed. IMPRESSION: 1. Status post laparoscopic cholecystectomy with intraoperative cholangiogram, postoperative day #1. 2. Cholecystitis and cholelithiasis. 3. Severe aortic stenosis. 4. Ischemic dilated cardiomyopathy. 5. Morbid obesity with elevated body mass index of 30. 6. Atrial fibrillation. 7. Hypertension. 8. Mild normocytic anemia. 9. Hyperkalemia. 10 Prerenal kidney injury. 11. Hyperglycemia and hypermagnesemia. 12. Questionable urinary retention, etiology undetermined. 13. Transient hypercalcemia. 14. Hypertriglyceridemia and hypercholesteremia. 15. Constipation. 16. Questionable Intensive Care Unit psychosis, agitation, and confusion. 17. Insulin-requiring diabetes mellitus. 18. Hyperlipidemia. 19. Prostatic hypertrophy. 20. Hyperuricemia. PLAN: At this time, the patient has been ordered serial labs. The patient's heparin drip will be resumed after surgical clearance. The patient is currently on Cardiology consultation, Surgical consultation, diabetic education, TCU evaluation. CURRENT MEDICATIONS: Colace 100 three times a day, Ecotrin 81 mg daily, Flomax started 0.4 b.i.d., Humalog low-dose sliding scale coverage before meals, Humulin 25 units with breakfast and dinner once the patient is back on diabetic diet, K-Dur 20 mEq twice a day, Lasix 80 mg daily by Cardiology, Lipitor 40 mg daily, Lopid 600 mg twice a day, Lopressor 25 mg b.i.d., magnesium oxide decreased to 400 mg twice a day from 09/30/2017, MiraLax 17 g twice a day, Proscar 5 mg at bedtime, Protonix 40 mg IV daily, allopurinol 300 mg daily, oxygen 2 liters continuous. Fingerstick blood sugar, out of bed, JOSH stephenson, SCDs. The patient has been ordered out of bed. At present, the patient's further management will be dependent upon the patient's clinical condition, hemodynamic status, as per the patient's response to therapeutic intervention, as per the patient's diagnostic test results, and as per recommendation by all the physicians involved in the care of the patient. The patient will be considered for transfer out of the ICU once the patient is cleared for transfer by Cardiology and Surgery. Dictated and electronically signed, not read. Brandyn Erickson MD
[2017-09-28] MEDS: Heparin25000 units/250ml 1/2NS 25,000 UNITS/250 ML BAG IV PRN (15:11)
--- NOTE | 2017-09-28 15:49 | PN ---
DATE: 09/28/2017 SUBJECTIVE: The patient is seen sitting in a chair in the CCU. He underwent laparoscopic cholecystectomy yesterday which apparently went relatively uneventfully. He remains in atrial fibrillation. He is unaware of any palpitations. He is currently not on full anticoagulation. MEDICATIONS: His current medications include Ecotrin, Flomax, insulin, Lasix 80 mg daily, Lipitor 40 mg daily, Lopid 600 mg b.i.d., metoprolol 25 mg b.i.d., Proscar 5 mg daily, Protonix 40 mg daily, and Zyloprim 300 mg daily. OBJECTIVE: GENERAL: He is an overweight middle-aged man. VITAL SIGNS: His blood pressure is 110/66 with a pulse of 100 to 110, in atrial fibrillation, respirations are 14. He is afebrile. HEENT: No JVD. CHEST: Bilateral rhonchi heard. HEART: PMI displaced laterally. Irregularly regular rhythm with late-peaking systolic murmur noted at the base. ABDOMEN: Soft and mild diffuse tenderness. Bowel sounds are present. EXTREMITIES: Revealed no edema. DIAGNOSTIC DATA: Potassium 5.3, BUN and creatinine 21 and 0.9, white count 13.1, hemoglobin and hematocrit 11.8 and 36.6 with platelet count of 183,000. IMPRESSION: 1. Hemodynamically stable, status post laparoscopic cholecystectomy. 2. Atrial fibrillation apparently of recent onset with moderate ventricular response. 3. Severe aortic stenosis. 4. Rest of problems as noted. RECOMMENDATIONS: Current medications should continue for now. Once felt safe from a surgical standpoint, a full anticoagulation should be initiated either with IV heparin or low molecular-weight heparin with a transition to oral anticoagulant proceeding forward. Rate control therapy for his atrial fibrillation will be planned at this time. We will continue to follow and make further recommendations as appropriate. Ben Barillas MD
[2017-09-29 04:37] LABS: BASO # 0.01 K/mm3 (0.0-2.0); BASO % 0.1 % (0.0-3.0); EOS # 0.2 (0.0-0.7); EOS % 1.7 % (1.5-5.0); GRAN # 8.36 (1.4-6.5); GRAN % 76.7 % (50.0-68.0); HEMOGLOBIN 12.1 g/dL (14.0-18.0); LYMPH # 1.3 (1.2-3.4); LYMPH % 11.5 % (22.0-35.0); MEAN CELL VOLUME 89.9 fl (80.0-105.0); MEAN CORPUSCULAR HEMOGLOBIN 28.5 pg (25.0-35.0); MEAN CORPUSCULAR HGB CONC 31.8 g/dl (31.0-37.0); MEAN PLATELET VOLUME 9.7 fl (7.0-11.0); MONO # 1.1 (0.1-0.6); RBC 4.24 10^6/uL (3.5-6.1); RED CELL DISTRIBUTION WIDTH 14.9 % (11.5-14.5); WHITE BLOOD COUNT 10.9 10^3/ul (4.5-11.0)
[2017-09-29 04:41] LABS: INR 1.41 (0.93-1.08); PROTHROMBIN TIME 16.2 SECONDS (9.4-12.5)
[2017-09-29 04:42] LABS: PARTIAL THROMBOPLASTIN TIME 80.2 Seconds (25.1-36.5)
[2017-09-29 04:47] LABS: ALB/GLOB RATIO 1.2 (1.1-1.8); ALBUMIN 4.2 g/dL (3.0-4.8); ALT/SGPT 47 U/L (7-56); AST/SGOT 56 U/L (17-59); BILIRUBIN,DIRECT 0.6 mg/dL (0.0-0.4); BLOOD UREA NITROGEN 25 mg/dL (7-21); CALCIUM 10.5 mg/dL (8.4-10.5); GFR AFRICAN-AMERICAN > 60; GFR NON-AFRICAN AMERICAN > 60
[2017-09-29] MEDS: Insulin Lispro (humaLOG) LOW Coverage SC SCH ×3 (08:15→17:01)
[2017-09-29] MEDS: Insulin Human NPH 1 UNITS/0.01 ML SC SCH ×2 (08:16→17:02)
--- NOTE | 2017-09-29 09:02 | PN ---
DATE: 09/29/2017 SUBJECTIVE: The patient is seen lying in bed in the CCU. He feels comfortable at the present time. He has no abdominal pain. He remains in atrial fibrillation. CURRENT MEDICATIONS: Include aspirin once daily, Flomax, IV heparin, insulin, Lasix 80 mg daily, Lipitor 40 mg daily, Lopid 600 mg b.i.d. and metoprolol 25 mg b.i.d. as well as Proscar and Protonix. OBJECTIVE: GENERAL: He is an obese, middle-aged man. VITAL SIGNS: His blood pressure is 126/70 with pulse of 17 and 19, respirations are 16. He is afebrile. HEENT: No JVD. CHEST: A few scattered rhonchi. HEART: PMI displaced laterally with late-peaking systolic murmur at the base. ABDOMEN: Soft and nontender, normoactive bowel sounds. EXTREMITIES: No edema. DIAGNOSTIC DATA: Potassium 4.1, BUN and creatinine 25 and 1, glucose 226, hemoglobin and hematocrit 12.1 and 38.1 with a white count 10.9, platelet count 182,000. PTT is 80.2. IMPRESSION: 1. Persistent atrial fibrillation, on rate control therapy at this time. 2. Severe aortic stenosis, asymptomatic. 3. Status post recent cholecystectomy, clinically improved. RECOMMENDATIONS: IV anticoagulation will continue and initiation of oral agent will be planned once felt safe from a surgical standpoint. Beta-olga therapy for rate control will be continued. He should be gotten out of bed and transfer to telemetry is reasonable at this time. We will be happy to follow along and make further recommendations as appropriate. Ben Barillas MD
--- NOTE | 2017-09-29 09:58 | CP.PCM.PN ---
Subjective - Date & Time of Evaluation Date of Evaluation: 09/29/17 Time of Evaluation: 07:20 - Subjective Subjective: Patient seen and examined at bedside this Am. No adverse events overnight, patient is oriented, denies any nausea, vomiting, and only slight pain. Patient is taking in small amount of HHD and tolerating well. No bowel function yet but patient was getting assisted to the commode during examination. Objective - Vital Signs/Intake and Output Vital Signs (last 24 hours): Temp Pulse Resp BP Pulse Ox 98.8 F 90 20 127/69 100 09/29/17 08:00 09/28/17 19:50 09/28/17 20:00 09/28/17 19:00 09/28/17 19:50 - Medications Medications: Current Medications Allopurinol (Zyloprim) 300 mg PO DAILY [facility] Last Admin: 09/28/17 09:31 Dose: 300 mg Aspirin (Ecotrin) 81 mg PO DAILY [facility] Last Admin: 09/28/17 11:43 Dose: 81 mg Atorvastatin Calcium (Lipitor) 40 mg PO DIN [facility] Last Admin: 09/28/17 17:04 Dose: 40 mg Docusate Sodium (Colace) 100 mg PO TID [facility] Last Admin: 09/28/17 17:04 Dose: 100 mg Fentanyl (Fentanyl) 25 mcg IV Q5M PRN PRN Reason: Pain, moderate (4-7) Finasteride (Proscar) 5 mg PO HS [facility] Last Admin: 09/28/17 22:08 Dose: 5 mg Furosemide (Lasix) 80 mg PO DAILY [facility] Last Admin: 09/28/17 09:31 Dose: 80 mg Gemfibrozil (Lopid) 600 mg PO BID [facility] Last Admin: 09/28/17 17:05 Dose: 600 mg Heparin Sodium/Sodium Chloride (Heparin 36237 Units/250ml 1/2 Normal Saline) 25 ,000 units in 250 mls @ 14.043 mls/hr IV .[id number] PRN; Protocol; 18 UNITS/KG/HR PRN Reason: ADJUST RATE PER PROTOCOL Last Admin: 09/28/17 15:11 Dose: 18 units/kg/hr, 14.043 mls/hr Insulin Human Lispro (Humalog Low) 0 units SC [facility] PRN Reason: Protocol Last Admin: 09/29/17 08:15 Dose: 2 units Insulin Human NPH (Humulin N) 25 units SC ACBD [facility] Last Admin: 09/29/17 08:16 Dose: 25 units Magnesium Oxide (Mag-Ox) 400 mg PO BID [facility] Metoprolol Tartrate (Lopressor) 25 mg PO BID [facility] Last Admin: 09/28/17 17:04 Dose: 25 mg Morphine Sulfate (Morphine) 2 mg IVP Q6H PRN PRN Reason: Pain, severe (8-10) Ondansetron HCl (Zofran Inj) 4 mg IVP ONCE PRN PRN Reason: Nausea/Vomiting Pantoprazole Sodium (Protonix Inj) 40 mg IVP DAILY [facility] Last Admin: 09/28/17 09:32 Dose: 40 mg Polyethylene Glycol (Miralax) 17 gm PO BID [facility] Last Admin: 09/28/17 17:03 Dose: 17 gm Tamsulosin HCl (Flomax) 0.4 mg PO BID [facility] Last Admin: 09/28/17 17:04 Dose: 0.4 mg - Labs Labs: 09/29/17 04:00 09/29/17 04:00 PT 16.2 SECONDS (9.4-12.5) H 09/29/17 04:00 INR 1.41 (0.93-1.08) H 09/29/17 04:00 APTT 80.2 Seconds (25.1-36.5) H 09/29/17 04:00 - Constitutional Appears: Well, Non-toxic, No Acute Distress - Head Exam Head Exam: ATRAUMATIC, NORMOCEPHALIC - Eye Exam Eye Exam: Normal appearance. absent: Conjunctival injection, Scleral icterus - ENT Exam ENT Exam: Mucous Membranes Moist, Normal Oropharynx - Respiratory Exam Respiratory Exam: NORMAL BREATHING PATTERN. absent: Accessory Muscle Use, Respiratory Distress - GI/Abdominal Exam GI & Abdominal Exam: Soft. absent: Distended, Tenderness - Neurological Exam Neurological Exam: Alert, Awake, Oriented x3 - Psychiatric Exam Psychiatric exam: Normal Affect, Normal Mood - Skin Skin Exam: Dry, Normal Color, Warm Assessment and Plan - Assessment and Plan (Free Text) Assessment: 72M POD #2 s/p laparoscopic cholecystectomy, recovering well t-bili increased to 1.7 from 1.3 yesterday with slightly elevated direct bilirubin Plan: Continue daily CBC/CMP--patient's WBC is wnl, total BR increased, as well as AST /alk phos May consider an MRCP to evaluate for retained stone even though intra-operative cholangiogram was negative for obstruction of the CBD Continue HHD Encourage ambulation PRN pain and nausea medication Anticoagulation may be continued by cardiology recs from a surgical standpoint Dr. Ramires notified--further recs per him Roxanna Moya, PGY2
[2017-09-29] MEDS: POLYETHYLENE GLYCOL 3350 17 GM/Dose PACKET PO SCH ×2 (10:02→17:03)
--- NOTE | 2017-09-29 12:38 | PN ---
DATE: 09/29/2017 SUBJECTIVE: The patient is in ICU, bed 6. The patient is waiting for a telemetry bed. The patient was seen by the parts processor, was advised transfer to telemetry. Still awaiting bed. Overnight nurse's notes were reviewed. There was no documentation of the patient being confused or restless overnight. The patient was started on heparin drip by the Surgery. PHYSICAL EXAMINATION: VITAL SIGNS: T-max is the patient is afebrile. Telemetry shows atrial fibrillation, heart rate in 80s, 90s beats per minute. Blood pressure is averaging in 130s, 120s systolic, diastolic is in 70s and 80s. Respiration 20 to 22 to 18 per minute. O2 sat is 96%, 97%, 98%. Intake, output noted. HEENT: Head examination normocephalic, atraumatic. HEENT examination shows pinkish conjunctivae. Anicteric sclerae. No oropharyngeal lesion. No neck rigidity. CHEST: Shows median sternotomy surgical scar. LUNGS: Show questionable decreased breath sound at the bases, questionable rhonchi noted in the upper lung harris anteriorly. ABDOMEN: Morbidly obese. Positive surgical scar of laparoscopic cholecystectomy. GENITALIA: Male. EXTREMITIES: Show no pitting edema, no calf tenderness, no Aicha's signs. NEUROLOGICALLY: The patient is alert, awake, responsive. is able to move upper and lower extremities without assistance. Gait examination could not be tested. The patient is in ICU, bed 6. PSYCHIATRIC: Negative for auditory or visual hallucination. Negative for anxiety, depression. Negative for suicidal or homicidal ideation. DIAGNOSTICS: On 09/29/2017, CBC, CMP, LFTs reviewed. The patient has been started on heparin drip as elevated PT/INR. The patient was seen by Surgery and Cardiology, cleared for transfer of the ICU. The patient's CBC shows normal WBC. Hemoglobin, hematocrit and platelets reviewed. Chemistry: CMP shows potassium has normalized. Yesterday, potassium was 5.5. Renal profile, LFTs are within normal limits. IMAGING STUDIES: None. EKG shows atrial fibrillation with right bundle-branch block. IMPRESSION AND PLAN: 1. Status post laparoscopic cholecystectomy in the intraoperative cholangiogram, postoperative day 2. 2. Atrial fibrillation with rapid and slow ventricular response with pauses. 3. History of coronary artery disease, coronary artery bypass graft. 4. Ischemic dilated cardiomyopathy with decreased left ventricular ejection fraction and left ventricular dysfunction. 5. Moderate to severe aortic stenosis. 6. Pulmonary hypertension. 7. Morbid obesity. 8. Insulin-requiring diabetes mellitus. 9. Anemia. 10. Systolic congestive heart failure. 11. Dilated ischemic cardiomyopathy. 12. Status post hyperkalemia. 13. Hyperlipidemia, hypertriglyceridemia. 14. Prostatic hypertrophy. 15. Questionable urinary retention. 16. Dietary noncompliance. 17. History of hyperuricemia, hyperlipidemia, hypertriglyceridemia, history of vitamin B12 deficiency, history of insulin-requiring diabetes mellitus, history of dietary noncompliance. 18. Cholecystitis with cholelithiasis. Plan at this time, the patient is awaiting for a telemetry bed. The patient is to be transferred to telemetry when bed available. The patient will be continued on the heparin drip as ordered by Surgery. The patient will be continued on basal and bolus insulin. The patient will be continued on GI prophylaxis. The patient will be continued on all the other medications as per the MAR today. The patient has been followed by Cardiology and Surgery. The patient's long-term anticoagulation therapy will be determined by Cardiology regarding the choice of medication. Once the patient is on telemetry, physical therapy, occupational therapy, ambulation therapy, gait training will be ordered. The patient's case will be referred for TCU evaluation. At this time, the patient will be closely monitored with Surgery and Cardiology consultations. Dictated and electronically signed, not read. Brandyn Erickson MD
--- NOTE | 2017-09-29 13:55 | OP ---
PROCEDURE DATE: 09/27/2017 PREOPERATIVE DIAGNOSES: Cholelithiasis and cholecystitis. POSTOPERATIVE DIAGNOSES: Chronic cholecystitis and cholelithiasis with intraabdominal adhesions. PROCEDURE PERFORMED: 1. Laparoscopic cholecystectomy with intraoperative cholangiogram. 2. Lysis of dense intraabdominal adhesions. SURGEON: Abelino Ramires MD. FINISHING PAN OPERATOR: Dr. Moya. ANESTHESIOLOGIST: Dr. Cespedes. ANESTHESIA: General endotracheal anesthesia. ESTIMATED BLOOD LOSS: Minimal. SPECIMEN: Gallbladder with gallstones. INDICATIONS: The patient is a 72-year-old male with multiple medical problems including aortic stenosis and obesity. The patient has had a complaint of right upper quadrant abdominal pain for multiple months associated with discomfort and bloating and radiating often to his back. The patient wanted to have the cholecystectomy despite the fact that he is at high risk from cardiac point of view. This was discussed both with the patient and the family who all agreed. DESCRIPTION OF PROCEDURE: The patient was brought to the operating room and placed on the operating table in supine position. The patient was connected to the EKG, blood pressure and pulse oximetry monitors. The patient then underwent general endotracheal anesthesia and was prepped and draped in usual sterile fashion. First, time-out procedure took place and everybody in the room agreed as to the patient's identity, diagnoses and procedure to be performed. Using 2 towel clips, the anterior abdominal wall was elevated and a Veress needle was inserted through a small incision superior to the umbilicus. Once pneumoperitoneum was obtained, a 12-mm trocar was inserted through that incision and careful evaluation of the abdominal cavity revealed the presence of adhesions of omentum to the anterior abdominal wall, the liver and the area of the gallbladder. A second 5 mm trocar was inserted in the subxiphoid position and we proceeded with careful dissection of the adhesions. In order to expose the gallbladder, it took us over an hour and 5 minutes to clear the area of the liver and the gallbladder from the adhesion. We have to proceed very carefully as the patient had a very friable omentum in that area and every single time we tried to detach it, it was bleeding. Once it was completely detached and all the gallbladder was completely exposed, the adhesions from the anterior abdominal wall as well as the liver and the gallbladder were taken down and there was very good hemostasis at this point. We then proceeded with elevating the gallbladder by grabbing it by the body and elevating towards the infundibulum. The infundibulum appeared to be slightly inflamed and was carefully dissected out in order to expose the cystic duct. Once the cystic duct was exposed and from the surrounding tissue and the cystic artery was noted right behind it, we then proceeded with clipping of the cystic duct proximally and transecting partially the cystic duct in order to place the cholangiocatheter. Now, the cholangiocatheter was inserted into the cystic duct and under direct visualization with fluoroscopy, cholangiogram was obtained. This revealed prompt flow of dye into the entire biliary tree and prompt emptying into the duodenum with no evidence of any obstruction. At this point, the cystic duct catheter was removed, cystic duct was clipped distally and transected. Cystic artery was also dissected out, clipped and transected. Now, a tedious dissection took place in order to separate the gallbladder off the liver bed. There were areas of dense adhesions secondary to the previous inflammatory changes. The gallbladder was then carefully detached from the liver and once completely detached, it was placed in an EndoCatch bag and removed through the periumbilical incision. Now, the right upper quadrant was copiously irrigated. All the irrigant fluid was suctioned out. There was again excellent hemostasis noted throughout the liver bed, the sonam hepatis as well as the detached omentum from the previous dissection of the adhesions. Once reassured adequate hemostasis, we proceeded with release of pneumoperitoneum, evaluating trocar sites and there was no evidence of bleeding and removed the trocars and closed the wound using 0 Vicryl for the fascia, 3-0 Vicryl for the subcutaneous tissue and 4-0 Monocryl for skin. Sterile Dermabond dressing was applied to the wound. The patient tolerated the procedure well and there were no complications. The patient was awakened and transferred to the recovery room for further observation. Abelino Ramires MD
[2017-09-30] MEDS: Heparin25000 units/250ml 1/2NS 25,000 UNITS/250 ML BAG IV PRN (05:28)
[2017-09-30] MEDS: Pantoprazole 40 mg EC Tab PO SCH (05:29)
[2017-09-30 07:00] LABS: EOS # 0.1 (0.0-0.7); EOS % 1.4 % (1.5-5.0); GRAN # 5.75 (1.4-6.5); GRAN % 67.5 % (50.0-68.0); HEMOGLOBIN 10.5 g/dL (14.0-18.0); LYMPH # 1.5 (1.2-3.4); LYMPH % 17.1 % (22.0-35.0); MEAN CELL VOLUME 87.9 fl (80.0-105.0); MEAN CORPUSCULAR HEMOGLOBIN 28.2 pg (25.0-35.0); MEAN CORPUSCULAR HGB CONC 32.1 g/dl (31.0-37.0); MEAN PLATELET VOLUME 9.7 fl (7.0-11.0); MONO # 1.2 (0.1-0.6); RBC 3.72 10^6/uL (3.5-6.1); RED CELL DISTRIBUTION WIDTH 14.6 % (11.5-14.5); WHITE BLOOD COUNT 8.5 10^3/ul (4.5-11.0)
[2017-09-30 07:19] LABS: INR 1.35 (0.93-1.08); PARTIAL THROMBOPLASTIN TIME 51.8 Seconds (25.1-36.5); PROTHROMBIN TIME 15.6 SECONDS (9.4-12.5)
[2017-09-30 07:31] LABS: ALB/GLOB RATIO 1.1 (1.1-1.8); ALBUMIN 3.6 g/dL (3.0-4.8); ALT/SGPT 37 U/L (7-56); AST/SGOT 28 U/L (17-59); BILIRUBIN,DIRECT 0.6 mg/dL (0.0-0.4); BLOOD UREA NITROGEN 25 mg/dL (7-21); CALCIUM 9.7 mg/dL (8.4-10.5); GFR AFRICAN-AMERICAN > 60; GFR NON-AFRICAN AMERICAN > 60
[2017-09-30] MEDS: Insulin Lispro (humaLOG) LOW Coverage SC SCH ×3 (08:24→17:10)
--- NOTE | 2017-09-30 08:26 | CP.PCM.PN ---
Subjective - Date & Time of Evaluation Date of Evaluation: 09/30/17 Time of Evaluation: 07:00 - Subjective Subjective: Stable in CCU. He feels well. No CP or SOB. V/S noted. AF. PE: Lungs: clear Cor: irreg S1s2, MARÍA Abd.: soft Ext.: no edema Neuro.: alert I/O= 1268/950 recorded Labs noted: K+= 3.5, PTT = 52, INR = 1.35 Echo repeated: See report. Lakshmi. LVD, Severe , Severe TR and PH Objective - Vital Signs/Intake and Output Vital Signs (last 24 hours): Temp Pulse Resp BP Pulse Ox 98.7 F 99 H 22 122/55 L 94 L 09/29/17 16:00 09/30/17 08:00 09/29/17 19:20 09/29/17 17:02 09/29/17 19:20 - Medications Medications: Current Medications Acetaminophen (Tylenol 325mg Tab) 650 mg PO Q6H PRN PRN Reason: Pain, moderate (4-7) Allopurinol (Zyloprim) 300 mg PO DAILY [facility] Last Admin: 09/29/17 10:02 Dose: 300 mg Aspirin (Ecotrin) 81 mg PO DAILY [facility] Last Admin: 09/29/17 10:02 Dose: 81 mg Atorvastatin Calcium (Lipitor) 40 mg PO DIN [facility] Last Admin: 09/29/17 17:02 Dose: 40 mg Docusate Sodium (Colace) 100 mg PO TID [facility] Last Admin: 09/29/17 17:02 Dose: 100 mg Finasteride (Proscar) 5 mg PO HS [facility] Last Admin: 09/29/17 22:00 Dose: 5 mg Furosemide (Lasix) 80 mg PO DAILY [facility] Last Admin: 09/29/17 10:02 Dose: 80 mg Gemfibrozil (Lopid) 600 mg PO BID [facility] Last Admin: 09/29/17 17:02 Dose: 600 mg Heparin Sodium/Sodium Chloride (Heparin 76112 Units/250ml 1/2 Normal Saline) 25 ,000 units in 250 mls @ 14.043 mls/hr IV .[id number] PRN; Protocol; 18 UNITS/KG/HR PRN Reason: ADJUST RATE PER PROTOCOL Last Admin: 09/30/17 05:28 Dose: 18 units/kg/hr, 14.043 mls/hr Potassium Chloride (Potassium Chloride 20 Meq/100 Ml) 20 meq in 100 mls @ 50 mls/hr IVPB Q2H [facility] Stop: 09/30/17 11:59 Insulin Human Lispro (Humalog Low) 0 units SC [facility] PRN Reason: Protocol Last Admin: 09/29/17 17:01 Dose: 3 units Insulin Human NPH (Humulin N) 25 units SC ACBD [facility] Last Admin: 09/29/17 17:02 Dose: 25 units Magnesium Oxide (Mag-Ox) 400 mg PO BID [facility] Metoprolol Tartrate (Lopressor) 25 mg PO BID [facility] Last Admin: 09/29/17 17:02 Dose: 25 mg Ondansetron HCl (Zofran Inj) 4 mg IVP ONCE PRN PRN Reason: Nausea/Vomiting Pantoprazole Sodium (Protonix Ec Tab) 40 mg PO 0600 [facility] Last Admin: 09/30/17 05:29 Dose: 40 mg Polyethylene Glycol (Miralax) 17 gm PO BID [facility] Last Admin: 09/29/17 17:03 Dose: 17 gm Tamsulosin HCl (Flomax) 0.4 mg PO BID [facility] Last Admin: 09/29/17 17:02 Dose: 0.4 mg Warfarin Sodium (Coumadin) 5 mg PO 1800 [facility] PRN Reason: Protocol - Labs Labs: 09/30/17 05:30 09/30/17 05:30 PT 15.6 SECONDS (9.4-12.5) H 09/30/17 05:30 INR 1.35 (0.93-1.08) H 09/30/17 05:30 APTT 51.8 Seconds (25.1-36.5) H 09/30/17 05:30 Assessment and Plan - Assessment and Plan (Free Text) Assessment: Admitted for elective high risk lap. karlos, found to be in AF, new S/P lap. karlos. 09/27/17 CAD/UT/CABG/Sev. LVD Valvular Heart Disease: Sev , TR and PH PVD Gout BPH Gall Stones with frequent symptoms. Mentaly Challenged Plan: OOB as martha. Tel or M/S bed Start Eliquis 5 BID if OK with surgery (and D/C heparin). Replace K+
[2017-09-30] MEDS: Insulin Human NPH 1 UNITS/0.01 ML SC SCH ×2 (08:39→17:05)
[2017-09-30] MEDS: Magnesium Oxide 400 mg Tab UD PO SCH ×2 (10:28→17:07)
[2017-09-30] MEDS: POLYETHYLENE GLYCOL 3350 17 GM/Dose PACKET PO SCH (10:29)
--- NOTE | 2017-09-30 11:58 | CP.PCM.PN ---
Subjective - Date & Time of Evaluation Date of Evaluation: 09/30/17 Time of Evaluation: 06:00 - Subjective Subjective: Patient seen and evaluated bedside. No acute issues overnight. Patient denies any chest pain, shortness of breath, nausea, vomiting, or any other complaints at this time. Objective - Vital Signs/Intake and Output Vital Signs (last 24 hours): Temp Pulse Resp BP Pulse Ox 98.7 F 127 H 22 121/74 99 09/29/17 16:00 09/30/17 11:35 09/30/17 11:20 09/30/17 11:35 09/30/17 11:20 - Medications Medications: Current Medications Acetaminophen (Tylenol 325mg Tab) 650 mg PO Q6H PRN PRN Reason: Pain, moderate (4-7) Allopurinol (Zyloprim) 300 mg PO DAILY [facility] Last Admin: 09/29/17 10:02 Dose: 300 mg Apixaban (Eliquis) 5 mg PO BID [facility] PRN Reason: Protocol Last Admin: 09/30/17 10:29 Dose: 5 mg Aspirin (Ecotrin) 81 mg PO DAILY [facility] Last Admin: 09/30/17 10:27 Dose: 81 mg Atorvastatin Calcium (Lipitor) 40 mg PO DIN [facility] Last Admin: 09/29/17 17:02 Dose: 40 mg Docusate Sodium (Colace) 100 mg PO TID [facility] Last Admin: 09/30/17 10:22 Dose: 100 mg Finasteride (Proscar) 5 mg PO HS [facility] Last Admin: 09/29/17 22:00 Dose: 5 mg Furosemide (Lasix) 80 mg PO DAILY [facility] Last Admin: 09/30/17 10:23 Dose: 80 mg Gemfibrozil (Lopid) 600 mg PO BID [facility] Last Admin: 09/30/17 10:27 Dose: 600 mg Potassium Chloride (Potassium Chloride 20 Meq/100 Ml) 20 meq in 100 mls @ 50 mls/hr IVPB Q2H [facility] Stop: 09/30/17 11:59 Last Admin: 09/30/17 11:06 Dose: 50 mls/hr Insulin Human Lispro (Humalog Low) 0 units SC AC [facility] PRN Reason: Protocol Last Admin: 09/30/17 08:24 Dose: 2 units Insulin Human NPH (Humulin N) 25 units SC ACBD [facility] Last Admin: 09/30/17 08:39 Dose: 25 units Magnesium Oxide (Mag-Ox) 400 mg PO BID [facility] Last Admin: 09/30/17 10:28 Dose: 400 mg Metoprolol Succinate (Toprol Xl) 50 mg PO BID [facility] Ondansetron HCl (Zofran Inj) 4 mg IVP ONCE PRN PRN Reason: Nausea/Vomiting Pantoprazole Sodium (Protonix Ec Tab) 40 mg PO 0600 [facility] Last Admin: 09/30/17 05:29 Dose: 40 mg Polyethylene Glycol (Miralax) 17 gm PO BID [facility] Last Admin: 09/30/17 10:29 Dose: 17 gm Tamsulosin HCl (Flomax) 0.4 mg PO BID [facility] Last Admin: 09/30/17 10:28 Dose: 0.4 mg - Labs Labs: 09/30/17 05:30 09/30/17 05:30 PT 15.6 SECONDS (9.4-12.5) H 09/30/17 05:30 INR 1.35 (0.93-1.08) H 09/30/17 05:30 APTT 51.8 Seconds (25.1-36.5) H 09/30/17 05:30 - Constitutional Appears: Non-toxic, No Acute Distress - Head Exam Head Exam: ATRAUMATIC, NORMAL INSPECTION, NORMOCEPHALIC - Eye Exam Eye Exam: Normal appearance - ENT Exam ENT Exam: Mucous Membranes Moist - Respiratory Exam Respiratory Exam: Clear to Ausculation Bilateral, NORMAL BREATHING PATTERN - Cardiovascular Exam Cardiovascular Exam: Irregular Rhythm - GI/Abdominal Exam GI & Abdominal Exam: Distended, Soft - Neurological Exam Neurological Exam: Alert, Awake, Oriented x3 Assessment and Plan - Assessment and Plan (Free Text) Assessment: Patient is a 72M with PMH of CAD, HI, CABG, aortic stenosis, and tricuspid regurgitation on aspirin at home with chronic cholecystitis and cholelithiasis who presented for an outpatient laparoscopic cholecystectomy. Patient was evaluated by cardiology prior to procedure and given a high risk by Dr. Ram prior to surgery with EKG on 09/03 with normal sinus rhythm. Patient was here for outpatient cholecystectomy on Saturday but was found in new onset atrial fibrillation once he got on the table. Plan: 1. Afib -started on eliquis -D/C heparin -cardio consulted, Yo, follow recs -Metoprolol increased to 50BID 2. CAD -continue current meds -HHD 3. Gout-chronic -continue home meds 4. Hypokalemia -repleted -continue to monitor GI/DVT -protonix -Eliquis TCU evaluation pending
--- NOTE | 2017-09-30 13:52 | PN ---
DATE: 09/30/2017 SUBJECTIVE: The patient is in ICU, bed 6 still, awaiting for a telemetry bed. Overnight nurse's notes were reviewed. No adverse events were documented. The patient tolerated diet yesterday, which was ordered by Surgery. The patient denies any bleeding. Denies any chest pain. Denies any shortness of breath. A 13-system review was done. Pertinent positive and negative dictated above. PHYSICAL EXAMINATION: VITAL SIGNS: T-max 98.7. Telemetry shows atrial fibrillation, heart rate averaging around low 100, blood pressure 122/55, O2 sat 94-100%. HEENT: Head: Normocephalic, atraumatic. HEENT examination shows pinkish pale conjunctivae. Anicteric sclerae. No oropharyngeal lesion. No neck rigidity. CHEST: Kyphosis. Positive median sternotomy surgical scar. LUNGS: Shows questionable decreased breath sound at the bases, left more than the right. CARDIOVASCULAR: S1 and S2. Irregular rhythm. Positive systolic murmur left sternal border, right second intercostal space, left second intercostal space. ABDOMEN: Protuberant, obese. Positive laparoscopic surgical scar noted. Unable to appreciate any hepatosplenomegaly. GENITALIA: Male. RECTAL: Deferred. EXTREMITIES: Shows no pitting edema, no calf tenderness, no Homans' signs. MUSCULOSKELETAL: Shows an elevated body mass index with regards to height and weight. NEUROLOGIC: The patient is alert, awake, responsive. He is able to move upper and lower extremity without assistance. Gait examination is not tested. VASCULAR: Palpable pulses. PSYCHIATRIC: Not applicable. DIAGNOSTICS: From 09/30, WBC 8.5, hemoglobin and hematocrit 10.5 and 32.7, platelet 164. PT/PTT 15.6/57.8. Sodium 142, potassium is down 3.5, chloride 97, CO2 31, BUN 25, creatinine 0.9, glucose 179, calcium 9.7, magnesium 1.8. LFTs are within normal limits. IMPRESSION AND PLAN: 1. Status post laparoscopic cholecystectomy and intraoperative cholangiogram and lysis of abdominal adhesion, postop day 3. 2. Atrial fibrillation with rapid ventricular response and slow ventricular response with pauses. 3. Efmupgkz-tk-rdiuiz aortic stenosis. 4. Pulmonary hypertension. 5. Elevated right ventricular systolic pressure with pulmonary hypertension. 6. Atrial fibrillation. 7. Right bundle-branch block. 8. Coronary artery disease, coronary artery bypass graft. 9. Dilated ischemic cardiomyopathy. 10. Normocytic anemia. 11. Anticoagulation requiring atrial fibrillation. 12. New-onset atrial fibrillation. 13. Hypokalemia. 14. Prerenal kidney injury. 15. Morbid obesity. 16. Insulin-requiring diabetes mellitus. 17. History of cardiogenic shock, history of myocardial infarction, history of coronary artery disease, coronary artery bypass graft. 18. Insulin-requiring diabetes mellitus. 19. History of hypertension. 20. History of hyperlipidemia, hypertriglyceridemia. 21. History of prostatic hypertrophy. 22. Questionable postoperative urinary retention. 23. Vitamin B12 deficiency. 24. Severe dietary noncompliance. PLAN AT THIS TIME: The patient will be given 2 potassium riders 20 mEq. The patient will be continued on heparin drip as per surgery and the patient will require determination about the choice of custodial oral anticoagulation. The patient is awaiting transfer out to telemetry. The patient will be continued on other medications as per MAR. The patient is awaiting for a telemetry bed. Once on telemetry, the patient will be considered physical therapy, occupational therapy, ambulation therapy, gait training and ambulation training. The patient's case is referred for Transitional Care Unit, if accepted. The patient will be continued on all the medications as per MAR. Dictated and electronically signed, not read. Brandyn Erickson MD
--- NOTE | 2017-09-30 15:34 | CP.PCM.PN ---
Subjective - Date & Time of Evaluation Date of Evaluation: 09/30/17 Time of Evaluation: 07:35 - Subjective Subjective: Surgery Progress note. Dr. Ramires Pt seen and examined at bedside. No acute events overnight. States that he feels well. No Nausea/Vomiting. Abdominal pain tolerable. Tolerating diet. States that he wants to be discharged home. No new complaints. Objective - Vital Signs/Intake and Output Vital Signs (last 24 hours): Temp Pulse Resp BP Pulse Ox 98.7 F 127 H 22 121/74 99 09/29/17 16:00 09/30/17 11:35 09/30/17 11:20 09/30/17 11:35 09/30/17 11:20 - Medications Medications: Current Medications Acetaminophen (Tylenol 325mg Tab) 650 mg PO Q6H PRN PRN Reason: Pain, moderate (4-7) Allopurinol (Zyloprim) 300 mg PO DAILY [facility] Last Admin: 09/29/17 10:02 Dose: 300 mg Apixaban (Eliquis) 5 mg PO BID [facility] PRN Reason: Protocol Last Admin: 09/30/17 10:29 Dose: 5 mg Aspirin (Ecotrin) 81 mg PO DAILY [facility] Last Admin: 09/30/17 10:27 Dose: 81 mg Atorvastatin Calcium (Lipitor) 40 mg PO DIN [facility] Last Admin: 09/29/17 17:02 Dose: 40 mg Docusate Sodium (Colace) 100 mg PO TID [facility] Last Admin: 09/30/17 10:22 Dose: 100 mg Finasteride (Proscar) 5 mg PO HS [facility] Last Admin: 09/29/17 22:00 Dose: 5 mg Furosemide (Lasix) 80 mg PO DAILY [facility] Last Admin: 09/30/17 10:23 Dose: 80 mg Gemfibrozil (Lopid) 600 mg PO BID [facility] Last Admin: 09/30/17 10:27 Dose: 600 mg Insulin Human Lispro (Humalog Low) 0 units SC AC [facility] PRN Reason: Protocol Last Admin: 09/30/17 12:38 Dose: 3 units Insulin Human NPH (Humulin N) 25 units SC ACBD [facility] Last Admin: 09/30/17 08:39 Dose: 25 units Magnesium Oxide (Mag-Ox) 400 mg PO BID [facility] Last Admin: 09/30/17 10:28 Dose: 400 mg Metoprolol Succinate (Toprol Xl) 50 mg PO BID [facility] Ondansetron HCl (Zofran Inj) 4 mg IVP ONCE PRN PRN Reason: Nausea/Vomiting Pantoprazole Sodium (Protonix Ec Tab) 40 mg PO 0600 [facility] Last Admin: 09/30/17 05:29 Dose: 40 mg Polyethylene Glycol (Miralax) 17 gm PO BID [facility] Last Admin: 09/30/17 10:29 Dose: 17 gm Tamsulosin HCl (Flomax) 0.4 mg PO BID [facility] Last Admin: 09/30/17 10:28 Dose: 0.4 mg - Labs Labs: 09/30/17 05:30 09/30/17 05:30 PT 15.6 SECONDS (9.4-12.5) H 09/30/17 05:30 INR 1.35 (0.93-1.08) H 09/30/17 05:30 APTT 51.8 Seconds (25.1-36.5) H 09/30/17 05:30 - Constitutional Appears: Well, Non-toxic, No Acute Distress - Head Exam Head Exam: ATRAUMATIC, NORMAL INSPECTION, NORMOCEPHALIC - Eye Exam Eye Exam: EOMI, Normal appearance - ENT Exam ENT Exam: Mucous Membranes Moist - Respiratory Exam Respiratory Exam: NORMAL BREATHING PATTERN. absent: Accessory Muscle Use, Respiratory Distress - Cardiovascular Exam Cardiovascular Exam: absent: JVD - GI/Abdominal Exam GI & Abdominal Exam: Soft. absent: Distended, Guarding, Rigid, Tenderness, Rebound - Neurological Exam Neurological Exam: Alert, Awake, Oriented x3 - Psychiatric Exam Psychiatric exam: Normal Affect, Normal Mood - Skin Skin Exam: Dry, Intact, Normal Color, Warm Assessment and Plan - Assessment and Plan (Free Text) Assessment: 72yo M s/p Lap Patrizia. POD3 Plan: - Cleared for discharge home from surgery standpoint - continue anticoagulation - OOBTC. Encourage IS use - Follow up in office in 2 weeks. Call for appointment Further recs as per Dr. Keyla Harmon PGY1 surgery pager: [phone]
[2017-09-30] MEDS: Metoprolol Succinate 50 mg XL Tab PO SCH (17:01)
[2017-10-01] MEDS: Pantoprazole 40 mg EC Tab PO SCH (06:27)
--- NOTE | 2017-10-01 06:42 | CP.PCM.PN ---
Objective - Vital Signs/Intake and Output Vital Signs (last 24 hours): Temp Pulse Resp BP Pulse Ox 98.5 F 88 22 119/78 95 10/01/17 00:00 10/01/17 02:00 10/01/17 00:00 09/30/17 17:03 10/01/17 00:00 Intake and Output: 09/30/17 10/01/17 18:59 06:59 Intake Total 750 Output Total 950 Balance -200 - Medications Medications: Current Medications Acetaminophen (Tylenol 325mg Tab) 650 mg PO Q6H PRN PRN Reason: Pain, moderate (4-7) Allopurinol (Zyloprim) 300 mg PO DAILY [facility] Last Admin: 09/30/17 12:15 Dose: 300 mg Apixaban (Eliquis) 5 mg PO BID [facility] PRN Reason: Protocol Last Admin: 09/30/17 17:06 Dose: 5 mg Aspirin (Ecotrin) 81 mg PO DAILY [facility] Last Admin: 09/30/17 10:27 Dose: 81 mg Atorvastatin Calcium (Lipitor) 40 mg PO DIN [facility] Last Admin: 09/30/17 17:09 Dose: 40 mg Docusate Sodium (Colace) 100 mg PO TID [facility] Last Admin: 09/30/17 17:07 Dose: 100 mg Finasteride (Proscar) 5 mg PO HS [facility] Last Admin: 10/01/17 01:00 Dose: 5 mg Furosemide (Lasix) 80 mg PO DAILY [facility] Last Admin: 09/30/17 10:23 Dose: 80 mg Gemfibrozil (Lopid) 600 mg PO BID [facility] Last Admin: 09/30/17 17:07 Dose: 600 mg Insulin Human Lispro (Humalog Low) 0 units SC AC [facility] PRN Reason: Protocol Last Admin: 09/30/17 17:10 Dose: 2 units Insulin Human NPH (Humulin N) 25 units SC ACBD [facility] Last Admin: 09/30/17 17:05 Dose: 25 units Magnesium Oxide (Mag-Ox) 400 mg PO BID [facility] Last Admin: 09/30/17 17:07 Dose: 400 mg Metoprolol Succinate (Toprol Xl) 50 mg PO BID [facility] Last Admin: 09/30/17 17:01 Dose: 50 mg Ondansetron HCl (Zofran Inj) 4 mg IVP ONCE PRN PRN Reason: Nausea/Vomiting Pantoprazole Sodium (Protonix Ec Tab) 40 mg PO 0600 [facility] Last Admin: 09/30/17 05:29 Dose: 40 mg Polyethylene Glycol (Miralax) 17 gm PO BID [facility] Last Admin: 09/30/17 10:29 Dose: 17 gm Tamsulosin HCl (Flomax) 0.4 mg PO BID [facility] Last Admin: 09/30/17 17:05 Dose: 0.4 mg - Labs Labs: 09/30/17 05:30 09/30/17 05:30 PT 15.6 SECONDS (9.4-12.5) H 09/30/17 05:30 INR 1.35 (0.93-1.08) H 09/30/17 05:30 APTT 51.8 Seconds (25.1-36.5) H 09/30/17 05:30
[2017-10-01 06:49] LABS: BASO # 0.01 K/mm3 (0.0-2.0); BASO % 0.1 % (0.0-3.0); EOS # 0.2 (0.0-0.7); EOS % 2.1 % (1.5-5.0); GRAN # 5.52 (1.4-6.5); GRAN % 66.7 % (50.0-68.0); HEMOGLOBIN 10.6 g/dL (14.0-18.0); LYMPH # 1.3 (1.2-3.4); LYMPH % 15.7 % (22.0-35.0); MEAN CELL VOLUME 87.3 fl (80.0-105.0); MEAN CORPUSCULAR HEMOGLOBIN 28.6 pg (25.0-35.0); MEAN CORPUSCULAR HGB CONC 32.7 g/dl (31.0-37.0); MEAN PLATELET VOLUME 9.9 fl (7.0-11.0); MONO # 1.3 (0.1-0.6); MONO % 15.4 % (1.0-6.0); RBC 3.71 10^6/uL (3.5-6.1); RED CELL DISTRIBUTION WIDTH 14.4 % (11.5-14.5); WHITE BLOOD COUNT 8.3 10^3/ul (4.5-11.0)
[2017-10-01 07:05] LABS: ALBUMIN 3.7 g/dL (3.0-4.8); ALT/SGPT 37 U/L (7-56); AST/SGOT 31 U/L (17-59); BILIRUBIN,DIRECT 0.6 mg/dL (0.0-0.4); BLOOD UREA NITROGEN 23 mg/dL (7-21); GFR AFRICAN-AMERICAN > 60; GFR NON-AFRICAN AMERICAN > 60
[2017-10-01] MEDS ORDERED: Potassium Chloride 20 mEq ER Tab PO ONE (07:08)
[2017-10-01 07:26] LABS: INR 1.53 (0.93-1.08); PARTIAL THROMBOPLASTIN TIME 32.6 Seconds (25.1-36.5); PROTHROMBIN TIME 17.7 SECONDS (9.4-12.5)
--- NOTE | 2017-10-01 07:43 | CP.PCM.PN ---
Subjective - Date & Time of Evaluation Date of Evaluation: 10/01/17 Time of Evaluation: 07:00 - Subjective Subjective: Stable in CCU. He feels well. No CP or SOB. Was OOB. Eating well/ V/S noted. AF. PE: Lungs: clear Cor: irreg S1s2, MARÍA Abd.: soft Ext.: no edema Neuro.: alert I/O= 750/950 recorded Labs noted: K+= 3.6 Echo repeated: See report. Lakshmi. LVD, Severe , Severe TR and PH Objective - Vital Signs/Intake and Output Vital Signs (last 24 hours): Temp Pulse Resp BP Pulse Ox 98.5 F 88 22 119/78 95 10/01/17 00:00 10/01/17 02:00 10/01/17 00:00 09/30/17 17:03 10/01/17 00:00 - Medications Medications: Current Medications Acetaminophen (Tylenol 325mg Tab) 650 mg PO Q6H PRN PRN Reason: Pain, moderate (4-7) Allopurinol (Zyloprim) 300 mg PO DAILY [facility] Last Admin: 09/30/17 12:15 Dose: 300 mg Apixaban (Eliquis) 5 mg PO BID [facility] PRN Reason: Protocol Last Admin: 09/30/17 17:06 Dose: 5 mg Aspirin (Ecotrin) 81 mg PO DAILY [facility] Last Admin: 09/30/17 10:27 Dose: 81 mg Atorvastatin Calcium (Lipitor) 40 mg PO DIN [facility] Last Admin: 09/30/17 17:09 Dose: 40 mg Docusate Sodium (Colace) 100 mg PO TID [facility] Last Admin: 09/30/17 17:07 Dose: 100 mg Finasteride (Proscar) 5 mg PO HS [facility] Last Admin: 10/01/17 01:00 Dose: 5 mg Furosemide (Lasix) 80 mg PO DAILY [facility] Last Admin: 09/30/17 10:23 Dose: 80 mg Gemfibrozil (Lopid) 600 mg PO BID [facility] Last Admin: 09/30/17 17:07 Dose: 600 mg Insulin Human Lispro (Humalog Low) 0 units SC AC [facility] PRN Reason: Protocol Last Admin: 09/30/17 17:10 Dose: 2 units Insulin Human NPH (Humulin N) 25 units SC ACBD [facility] Last Admin: 09/30/17 17:05 Dose: 25 units Magnesium Oxide (Mag-Ox) 400 mg PO BID [facility] Last Admin: 09/30/17 17:07 Dose: 400 mg Metoprolol Succinate (Toprol Xl) 50 mg PO BID [facility] Last Admin: 09/30/17 17:01 Dose: 50 mg Ondansetron HCl (Zofran Inj) 4 mg IVP ONCE PRN PRN Reason: Nausea/Vomiting Pantoprazole Sodium (Protonix Ec Tab) 40 mg PO 0600 [facility] Last Admin: 10/01/17 06:27 Dose: 40 mg Polyethylene Glycol (Miralax) 17 gm PO BID [facility] Last Admin: 09/30/17 10:29 Dose: 17 gm Tamsulosin HCl (Flomax) 0.4 mg PO BID [facility] Last Admin: 09/30/17 17:05 Dose: 0.4 mg - Labs Labs: 10/01/17 05:25 10/01/17 05:25 PT 17.7 SECONDS (9.4-12.5) H 10/01/17 05:25 INR 1.53 (0.93-1.08) H 10/01/17 05:25 APTT 32.6 Seconds (25.1-36.5) 10/01/17 05:25 Assessment and Plan - Assessment and Plan (Free Text) Assessment: Admitted for elective high risk lap. karlos, found to be in AF, new S/P lap. karlos. 09/27/17 CAD/AL/CABG/Sev. LVD Valvular Heart Disease: Sev , TR and PH PVD Gout BPH Gall Stones with frequent symptoms. Mentaly Challenged Plan: OOB as martha. Eliquis 5 BID Replace K+ Ok for D/C home. Out pt f/u with me next week.
[2017-10-01] MEDS: Insulin Lispro (humaLOG) LOW Coverage SC SCH ×3 (08:17→17:48)
[2017-10-01] MEDS: Insulin Human NPH 1 UNITS/0.01 ML SC SCH ×2 (08:19→17:47)
--- NOTE | 2017-10-01 08:26 | CP.PCM.PN ---
Subjective - Date & Time of Evaluation Date of Evaluation: 10/01/17 Time of Evaluation: 07:00 - Subjective Subjective: Patient seen and examined at bedside this AM. No adverse events overnight, patient is tolerating diet with minimal pain. Patient wants to go home. Objective - Vital Signs/Intake and Output Vital Signs (last 24 hours): Temp Pulse Resp BP Pulse Ox 98.4 F 84 20 119/78 96 10/01/17 04:00 10/01/17 06:00 10/01/17 04:00 09/30/17 17:03 10/01/17 04:00 Intake and Output: 10/01/17 10/01/17 06:59 18:59 Intake Total 450 Output Total 800 Balance -350 - Medications Medications: Current Medications Acetaminophen (Tylenol 325mg Tab) 650 mg PO Q6H PRN PRN Reason: Pain, moderate (4-7) Allopurinol (Zyloprim) 300 mg PO DAILY [facility] Last Admin: 09/30/17 12:15 Dose: 300 mg Apixaban (Eliquis) 5 mg PO BID [facility] PRN Reason: Protocol Last Admin: 09/30/17 17:06 Dose: 5 mg Aspirin (Ecotrin) 81 mg PO DAILY [facility] Last Admin: 09/30/17 10:27 Dose: 81 mg Atorvastatin Calcium (Lipitor) 40 mg PO DIN [facility] Last Admin: 09/30/17 17:09 Dose: 40 mg Docusate Sodium (Colace) 100 mg PO TID [facility] Last Admin: 09/30/17 17:07 Dose: 100 mg Finasteride (Proscar) 5 mg PO HS [facility] Last Admin: 10/01/17 01:00 Dose: 5 mg Furosemide (Lasix) 80 mg PO DAILY [facility] Last Admin: 09/30/17 10:23 Dose: 80 mg Gemfibrozil (Lopid) 600 mg PO BID [facility] Last Admin: 09/30/17 17:07 Dose: 600 mg Insulin Human Lispro (Humalog Low) 0 units SC AC [facility] PRN Reason: Protocol Last Admin: 09/30/17 17:10 Dose: 2 units Insulin Human NPH (Humulin N) 25 units SC ACBD [facility] Last Admin: 09/30/17 17:05 Dose: 25 units Magnesium Oxide (Mag-Ox) 400 mg PO BID [facility] Last Admin: 09/30/17 17:07 Dose: 400 mg Metoprolol Succinate (Toprol Xl) 50 mg PO BID [facility] Last Admin: 09/30/17 17:01 Dose: 50 mg Ondansetron HCl (Zofran Inj) 4 mg IVP ONCE PRN PRN Reason: Nausea/Vomiting Pantoprazole Sodium (Protonix Ec Tab) 40 mg PO 0600 [facility] Last Admin: 10/01/17 06:27 Dose: 40 mg Polyethylene Glycol (Miralax) 17 gm PO BID [facility] Last Admin: 09/30/17 10:29 Dose: 17 gm Potassium Chloride (K-Dur 20 Meq Er Tab) 20 meq PO BID [facility] Tamsulosin HCl (Flomax) 0.4 mg PO BID [facility] Last Admin: 09/30/17 17:05 Dose: 0.4 mg - Labs Labs: 10/01/17 05:25 10/01/17 05:25 PT 17.7 SECONDS (9.4-12.5) H 10/01/17 05:25 INR 1.53 (0.93-1.08) H 10/01/17 05:25 APTT 32.6 Seconds (25.1-36.5) 10/01/17 05:25 - Constitutional Appears: Well, Non-toxic, No Acute Distress - Head Exam Head Exam: ATRAUMATIC, NORMOCEPHALIC - Eye Exam Eye Exam: Normal appearance. absent: Conjunctival injection, Scleral icterus - ENT Exam ENT Exam: Mucous Membranes Moist, Normal Oropharynx - Respiratory Exam Respiratory Exam: NORMAL BREATHING PATTERN. absent: Accessory Muscle Use, Respiratory Distress - Cardiovascular Exam Cardiovascular Exam: RRR - GI/Abdominal Exam GI & Abdominal Exam: Soft. absent: Distended, Tenderness Additional comments: incision well approximated with dermabond, healing well, no erythema, drainage, or swelling - Extremities Exam Extremities Exam: absent: Calf Tenderness - Neurological Exam Neurological Exam: Alert, Awake, Oriented x3 - Psychiatric Exam Psychiatric exam: Normal Affect, Normal Mood - Skin Skin Exam: Dry, Intact, Normal Color, Warm Assessment and Plan - Assessment and Plan (Free Text) Assessment: 72M POD#4 s/p laparoscopic cholecystectomy Plan: Patient is clear for discharge from a surgical standpoint. T-bili is trending down Continue current diet encourage ambulation and incentive spirometer use Discussed with Dr. Keyla Moya, PGY2
[2017-10-01] MEDS: Metoprolol Succinate 50 mg XL Tab PO SCH ×2 (09:55→17:32)
[2017-10-01] MEDS: Potassium Chloride 20 mEq ER Tab PO SCH ×2 (10:00→17:30)
[2017-10-01] MEDS: Magnesium Oxide 400 mg Tab UD PO SCH ×2 (10:13→17:31)
[2017-10-01] MEDS: POLYETHYLENE GLYCOL 3350 17 GM/Dose PACKET PO SCH ×2 (10:13→17:31)
--- NOTE | 2017-10-01 10:44 | CP.PCM.DIS ---
Provider - Provider Date of Admission: 09/25/17 13:13 Attending physician: Brandyn Erickson MD Primary care physician: Brandyn Erickson MD Consults: Cardiology: [facility] Time Spent in preparation of Discharge (in minutes): 75 Hospital Course - Lab Results Lab Results: Most Recent Lab Values WBC 8.3 10^3/ul (4.5-11.0) 10/01/17 05:25 RBC 3.71 10^6/uL (3.5-6.1) 10/01/17 05:25 Hgb 10.6 g/dL (14.0-18.0) L 10/01/17 05:25 Hct 32.4 % (42.0-52.0) L 10/01/17 05:25 MCV 87.3 fl (80.0-105.0) 10/01/17 05:25 MCH 28.6 pg (25.0-35.0) 10/01/17 05:25 MCHC 32.7 g/dl (31.0-37.0) 10/01/17 05:25 RDW 14.4 % (11.5-14.5) 10/01/17 05:25 Plt Count 204 10^3/uL (120.0-450.0) 10/01/17 05:25 MPV 9.9 fl (7.0-11.0) 10/01/17 05:25 Gran % 66.7 % (50.0-68.0) 10/01/17 05:25 Lymph % (Auto) 15.7 % (22.0-35.0) L 10/01/17 05:25 [place] % (Auto) 15.4 % (1.0-6.0) H 10/01/17 05:25 Eos % (Auto) 2.1 % (1.5-5.0) 10/01/17 05:25 Baso % (Auto) 0.1 % (0.0-3.0) 10/01/17 05:25 Gran # 5.52 (1.4-6.5) 10/01/17 05:25 Lymph # (Auto) 1.3 (1.2-3.4) 10/01/17 05:25 [place] # (Auto) 1.3 (0.1-0.6) H 10/01/17 05:25 Eos # (Auto) 0.2 (0.0-0.7) 10/01/17 05:25 Baso # (Auto) 0.01 K/mm3 (0.0-2.0) 10/01/17 05:25 PT 17.7 SECONDS (9.4-12.5) H 10/01/17 05:25 INR 1.53 (0.93-1.08) H 10/01/17 05:25 APTT 32.6 Seconds (25.1-36.5) 10/01/17 05:25 Sodium 141 mmol/L (132-148) 10/01/17 05:25 Potassium 3.6 mmol/L (3.6-5.0) 10/01/17 05:25 Chloride 95 mmol/L (98-107) L 10/01/17 05:25 Carbon Dioxide 35 mmol/L (21-33) H 10/01/17 05:25 Anion Gap 15 (10-20) 10/01/17 05:25 BUN 23 mg/dL (7-21) H 10/01/17 05:25 Creatinine 1.0 mg/dl (0.8-1.5) 10/01/17 05:25 Est GFR ( Amer) > 60 10/01/17 05:25 Est GFR (Non-Af Amer) > 60 10/01/17 05:25 POC Glucose (mg/dL) 213 mg/dL (65-110) H 10/01/17 08:09 Random Glucose 223 mg/dL (70-110) H 10/01/17 05:25 Hemoglobin A1c 7.3 % (4.2-6.5) H 09/24/17 17:05 Uric Acid 8.5 mg/dL (3.5-8.5) 09/24/17 17:05 Calcium 10.0 mg/dL (8.4-10.5) 10/01/17 05:25 Magnesium 1.7 mg/dL (1.7-2.2) 10/01/17 05:25 Total Bilirubin 1.4 mg/dL (0.2-1.3) H 10/01/17 05:25 Direct Bilirubin 0.6 mg/dL (0.0-0.4) H 10/01/17 05:25 AST 31 U/L (17-59) 10/01/17 05:25 ALT 37 U/L (7-56) 10/01/17 05:25 Alkaline Phosphatase 63 U/L (38-126) 10/01/17 05:25 Total Creatine Kinase 105 U/L (35-230) 09/26/17 05:30 Troponin I 0.02 ng/mL 09/26/17 05:30 Total Protein 7.2 g/dL (5.8-8.3) 10/01/17 05:25 Albumin 3.7 g/dL (3.0-4.8) 10/01/17 05:25 Globulin 3.6 gm/dL 10/01/17 05:25 Albumin/Globulin Ratio 1.0 (1.1-1.8) L 10/01/17 05:25 Triglycerides 168 mg/dL (35-160) H 09/24/17 17:05 Cholesterol 144 mg/dL (130-200) 09/24/17 17:05 LDL Cholesterol Direct 59 mg/dL (0-129) 09/24/17 17:05 HDL Cholesterol 51 mg/dL (29-60) 09/24/17 17:05 Vitamin B12 601 pg/mL (239-931) 09/24/17 17:05 Folate > 20.0 ng/mL 09/24/17 17:05 Free T4 1.51 ng/dL (0.78-2.19) 09/24/17 17:05 Thyroxine (T4) 7.4 ug/dL (5.5-11.0) 09/24/17 17:05 TSH 3rd Generation 2.92 mIU/mL (0.46-4.68) 09/25/17 09:50 Urine Color Light yellow (YELLOW) 09/26/17 20:08 Urine Appearance Clear (CLEAR) 09/26/17 20:08 Urine pH 7.0 (4.7-8.0) 09/26/17 20:08 Ur Specific [place] 1.010 (1.005-1.035) 09/26/17 20:08 Urine Protein Negative mg/dL (<30 mg/dL) 09/26/17 20:08 Urine Glucose (UA) Negative mg/dL (NEGATIVE) 09/26/17 20:08 Urine Ketones Negative mg/dL (NEGATIVE) 09/26/17 20:08 Urine Blood Negative (NEGATIVE) 09/26/17 20:08 Urine Nitrate Negative (NEGATIVE) 09/26/17 20:08 Urine Bilirubin Negative (NEGATIVE) 09/26/17 20:08 Urine Urobilinogen 0.2 E.U./dL (<1 E.U./dL) 09/26/17 20:08 Ur Leukocyte Esterase Negative [place]/uL (NEGATIVE) 09/26/17 20:08 Blood Type A NEGATIVE 09/27/17 04:00 Blood Type Confirm A NEGATIVE 09/24/17 07:55 Antibody Screen Negative 09/27/17 04:00 BBK History Checked Patient has bt 09/27/17 04:00 - Hospital Course Hospital Course: Patient is a 72M with PMH of CAD, [place], CABG, aortic stenosis, and tricuspid regurgitation on aspirin at home with chronic cholecystitis and cholelithiasis who presented for an outpatient laparoscopic cholecystectomy. Patient was evaluated by cardiology prior to procedure and given a high risk by Dr. Ram prior to surgery with EKG on 09/03 with normal sinus rhythm. was found in new onset atrial fibrillation once he got on the table. He was started on heparin then bridged to eliquis. Rate was controlled by increasing dosage of beta olga. Cholecystectomy was performed without any complication. Home meds for CAD and Gout wer continued. Patient was placed on proper prophylaxis. He was stable and new prescriptions given and patient told to follow up with Dr. Erickson and cardiology outpatient. Discharge Exam - Head Exam Head Exam: ATRAUMATIC, NORMOCEPHALIC - Eye Exam Eye Exam: EOMI, Normal appearance - Respiratory Exam Respiratory Exam: NORMAL BREATHING PATTERN Discharge Plan - Discharge Medications Prescriptions: Apixaban [Eliquis] 5 mg PO BID #60 tab Metoprolol Succinate [Toprol XL] 50 mg PO BID #60 tab Polyethylene Glycol 3350 [Miralax] 17 gm PO BID #60 packet Tamsulosin [Flomax] 0.4 mg PO BID #60 cap - Follow Up Plan Condition: GOOD Disposition: HOME/ ROUTINE Instructions: Type 2 Diabetes, Heart Healthy Diet, Atrial Fibrillation (DC), Heart Attack (DC), Cholecystectomy, Laparoscopic Surgery, Benign Prostatic Hyperplasia (Enlarged Prostate) (DC), Heart Failure and Atrial Fibrillation, Diet and Health, Gallstones (DC), Health Risks of Obesity, Medicines for Atrial Fibrillation, Obesity, Adult (DC) Additional Instructions: MAY DISCHARGE AFTER CLEARED BY SURGERY AND CARDIOLOGY MAY DISCHARGE TO TCU IF ACCEPTED OTHER MAY DISCHARGE HOME, REFER TO [facility] UPON DISCHARGE DISCHARGE MEDS PER UPDATED AMBULATORY ORDERS AND NEW SCRIPTS NO NO NO DRIVING NO ALCOHOL COPY OF DIET TO PATIENT AND FAMILY UPON DISCHARGE . FOLLOW UP WITHIN 1 WEEK REFER TO [facility] UPON DISCHARGE NO NO NO DRIVING Follow up with title insurance sales representative outpatient in one week NO ALCOHOL COPY OF DIET TO PATIENT AND FAMILY UPON DISCHARGE . FOLLOW UP WITHIN 1 WEEK Referrals: Brandyn Erickson MD [Primary Care Provider] - 1 Week (MAY DISCHARGE TO TCU IF ACCEPTED OTHER MAY DISCHARGE HOME, REFER TO [facility] UPON DISCHARGE DISCHARGE MEDS PER UPDATED AMBULATORY ORDERS AND NEW SCRIPTS NO NO NO DRIVING NO ALCOHOL COPY OF DIET TO PATIENT AND FAMILY UPON DISCHARGE . FOLLOW UP WITHIN 1 WEEK REFER TO [facility] UPON DISCHARGE NO NO NO DRIVING Follow up with title insurance sales representative outpatient NO ALCOHOL COPY OF DIET TO PATIENT AND FAMILY UPON DISCHARGE . FOLLOW UP WITHIN 1 WEEK ) Abelino Ramires MD [Staff Provider] -
--- NOTE | 2017-10-01 11:24 | DS ---
FINAL PROGRESS NOTE AND DISCHARGE SUMMARY DATE: 10/01/2017 DATE OF POSSIBLE DISCHARGE: 10/01/2017. SUBJECTIVE: The patient is in still in ICU, bed 6. The patient has been unable to find a telemetry or a remote telemetry bed. Overnight nurse's notes were reviewed. No adverse events were documented. The patient's Tamez catheter has been removed. The patient's appetite is back to baseline according to the patient. The patient denies any nausea, vomiting, diarrhea. Denies constipation. Denies hemoptysis, hematemesis, melena. Denies hematochezia. PHYSICAL EXAMINATION: VITAL SIGNS: In the last 24 hours, T-max 98.5; heart rate is down to 82-88; respirations 22; blood pressure 119/78, 121/74; O2 sat 95%. HEENT: Head examination normocephalic, atraumatic. HEENT examination shows pinkish conjunctivae. Anicteric sclerae. No oropharyngeal lesion. No neck rigidity. CHEST: Shows median sternotomy surgical scar. CARDIOVASCULAR: Shows S1, S2, irregular rhythm. Positive systolic murmur, left sternal border, right second intercostal space, left second intercostal space. ABDOMEN: Protuberant, obese. Positive bowel sound. GENITALIA: Male. EXTREMITY: Shows no pitting edema, no calf tenderness, no Homans' sign. NEUROLOGIC: The patient is alert, awake, responsive. Moves upper and lower extremity without assistance. Gait examination is not tested. Cranial nerves II through XII limited. VASCULAR: Palpate pulses. MUSCULOSKELETAL: Shows an elevated body mass index. PSYCHIATRIC: Not applicable. DIAGNOSTICS: On 10/01/2017, WBC 8.3, hemoglobin and hematocrit 10.6 and 32.4, platelet 204. Sodium 141, potassium 3.6, chloride 95, CO2 of 35 and BUN 23, creatinine 1, glucose 223, GFR greater than 60, calcium 10, magnesium 1.7, total bili 1.4. FINAL IMPRESSION, PLAN AND FINAL DISCHARGE DIAGNOSES: 1. Questionable and possible chronic cholecystitis. 2. Symptomatic cholelithiasis. 3. Status post laparoscopic cholecystectomy with intraoperative cholangiogram. 4. New-onset atrial fibrillation with rapid ventricular response. 5. Moderate to severe aortic stenosis. 6. Dilated ischemic cardiomyopathy with decreased left ventricular ejection fraction. 7. Pulmonary hypertension with elevated right ventricular systolic pressure. 8. Right bundle-branch block. 9. Atrial fibrillation. 10. Hypertension. 11. Normocytic anemia. 12. Prerenal kidney injury. 13. Mild hyperbilirubinemia. 14. Chronic cholecystitis and cholelithiasis. 15. Insulin-requiring diabetes mellitus. 16. Hyperglycemia. 17. Morbid obesity. 18. History of coronary artery disease, coronary artery bypass graft, history of cardiogenic shock, history of hypertension, hyperlipidemia, hypertriglyceridemia, history of diabetic neuropathy, prostatic hypertrophy with urinary retention. 19. History of vitamin B12 deficiency. 20. History of hyperuricemia. 21. History of hypokalemia, hypomagnesemia. 22. History of poor dietary compliance. 23. History of obesity. Plan at this time, the patient is awaiting clearance by Cardiology and Surgery for discharge. The patient will be considered for discharge if the patient is unable to find Med-Surg bed or a telemetry bed. The patient will be considered for discharge if possible. The patient was seen by physical therapy. The patient was cleared for discharge home by physical therapy as per physical therapy. If the patient is cleared for discharge by Cardiology and Surgery, the patient will be considered for possible discharge in the next 24-48 hours. If the patient is discharged, the patient has been advised to follow up with Dr. Erickson within [address] Ramires within 1 week. The patient's discharge restrictions, limited activity, no alcohol, no smoking, no driving. The patient will be given a copy of the diet upon discharge. The patient is to resume medications as per the updated ambulatory orders and the new script. The patient will be started on Eliquis 2.5 or 5 mg twice a day. The patient will be resumed on most and all of his home medications. The patient was advised weight loss, strict diet compliance and medication compliance. Which has been reinforced to the patient and the patient's sister on multiple occasions during hospitalization and during the office visit, which was again reinforced. MAY DISCHARGE AFTER CLEARED BY SURGERY AND CARDIOLOGY MAY DISCHARGE TO TCU IF ACCEPTED OTHER MAY DISCHARGE HOME, REFER TO [facility] UPON DISCHARGE DISCHARGE MEDS PER UPDATED AMBULATORY ORDERS AND NEW SCRIPTS NO NO NO DRIVING NO ALCOHOL COPY OF DIET TO PATIENT AND FAMILY UPON DISCHARGE . FOLLOW UP WITHIN 1 WEEK REFER TO [facility] UPON DISCHARGE NO NO NO DRIVING Follow up with measurer machine outpatient in one week NO ALCOHOL COPY OF DIET TO PATIENT AND FAMILY UPON DISCHARGE . FOLLOW UP WITHIN 1 WEEK Time spent in the entire discharge process more than 45 minutes. Dictated and electronically signed, not read. Brandyn Erickson MD [id number]
[2017-10-01 12:14] VITALS: BP 130/77; O2SAT 73
[2017-10-01 17:51] VITALS: PULSE 115; RESP 13; TEMP 97.9
== END 2017-10-01 17:30 | disposition home or self-care (01) | DRG 982 ==
LOC: SDS 06:18 → 2RSO 08:48 → OBSVTOIN 09-25 13:13 → CCU 09-27 12:21
PROVIDERS: ADMIT Internal Medicine; ATTEND Internal Medicine
PROC: 0DNU4ZZ Release Omentum, Percutaneous Endoscopic Approach (ICD-10-PCS; 2017-09-27)
PROC: BF131ZZ Fluoroscopy of Gallbladder and Bile Ducts using Low Osmolar Contrast (ICD-10-PCS; 2017-09-27)
PROC: 0FT44ZZ Resection of Gallbladder, Percutaneous Endoscopic Approach (ICD-10-PCS; principal; 2017-09-27 08:30)
DX: I48.1 Persistent atrial fibrillation (principal); K80.12 Calculus of gallbladder with acute and chronic cholecystitis without obstruction; I50.22 Chronic systolic (congestive) heart failure; I42.0 Dilated cardiomyopathy; D64.9 Anemia, unspecified; E11.51 Type 2 diabetes mellitus with diabetic peripheral angiopathy without gangrene; E11.65 Type 2 diabetes mellitus with hyperglycemia; E53.8 Deficiency of other specified B group vitamins; E66.01 Morbid (severe) obesity due to excess calories; E78.00 Pure hypercholesterolemia, unspecified; E78.1 Pure hyperglyceridemia; E78.5 Hyperlipidemia, unspecified; E83.52 Hypercalcemia; E87.5 Hyperkalemia; E87.6 Hypokalemia; I08.3 Combined rheumatic disorders of mitral, aortic and tricuspid valves; I11.0 Hypertensive heart disease with heart failure; I25.10 Atherosclerotic heart disease of native coronary artery without angina pectoris; I25.2 Old myocardial infarction; I25.5 Ischemic cardiomyopathy; I27.21 Secondary pulmonary arterial hypertension; I45.10 Unspecified right bundle-branch block; K57.30 Diverticulosis of large intestine without perforation or abscess without bleeding; K59.00 Constipation, unspecified; K66.0 Peritoneal adhesions (postprocedural) (postinfection); M10.9 Gout, unspecified; N40.1 Benign prostatic hyperplasia with lower urinary tract symptoms; R33.8 Other retention of urine; Z68.30 Body mass index [BMI] 30.0-30.9, adult; Z79.01 Long term (current) use of anticoagulants; Z79.4 Long term (current) use of insulin; Z79.82 Long term (current) use of aspirin; Z87.891 Personal history of nicotine dependence; Z91.11 Patient's noncompliance with dietary regimen; Z95.1 Presence of aortocoronary bypass graft; H26.9 Unspecified cataract; Z98.42 Cataract extraction status, left eye; M19.90 Unspecified osteoarthritis, unspecified site; E83.41 Hypermagnesemia